=== PATIENT | male | born 1955 | race Caucasian/White ===

== ENCOUNTER 2018-02-03 09:11 | Observation (INO) ==
--- NOTE | 2018-02-03 09:29 | Emergency Department Note ---
Disposition Clinical Impression: ZARIA (acute kidney injury) Chest pain Qualifiers: Chest pain type: unspecified Qualified Code(s): R07.9 - Chest pain, unspecified CVA (cerebral vascular accident) Qualifiers: CVA mechanism: unspecified Qualified Code(s): I63.9 - Cerebral infarction, unspecified Disposition: Admitted As Inpatient Condition: Undetermined Referrals: Carroll Wilhelm DO [Primary Care Provider] - Forms: ED Satisfaction Letter Time of Disposition: 10:57 General Adult HPI - General Chief complaint: ED Chest Pain Stated complaint: chest pain, nausea Time Seen by Provider: 02/03/18 09:15 Source: patient Mode of arrival: ambulatory Limitations: no limitations Nursing Notes Reviewed: Yes Vital Signs Reviewed: Yes - History of Present Illness HPI Narrative: 62-year-old male with history of CABG 3 vessels, CVA, arrives to the emergency department with complaint of generalized malaise and nausea, diaphoresis, bilateral upper extremity numbness and paresthesias that are new. 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 The patient is unsure of exactly when this started. No one else in the room to perform last known well. The patient does have some right-sided facial By a less prominent nasolabial fold on the right side. The patient states that he is unsure as past but thinks it is. We Did not call a stroke alert because we are unsure of last known well. The patient admits to some retrosternal chest pain and mild shortness of breath as well. He is unsure if this feels like previous cardiac problems. The patient has seen cardiology, Dr. Garcia, who has seen a similar complaint. The denies any other complaints. - Related Data Allergies Allergy/AdvReac Type Severity Reaction Status Date / Time diphenhydramine AdvReac Rash Verified 02/03/18 09:23 [From Benadryl] "HEART CATH DYE" AdvReac See Uncoded 02/03/18 09:23 Comments All systems ED: reviewed and negative except as stated. Constitutional: Denies: fever, chills, weakness Eyes: Denies: eye pain ENT ED: Denies: congestion Cardiovascular: Reports: chest pain, dyspnea on exertion. Denies: edema, syncope Respiratory: Reports: dyspnea. Denies: cough, sputum production Gastrointestinal: Reports: nausea. Denies: abdominal pain, vomiting, diarrhea Genitourinary: Denies: urgency, dysuria Musculoskeletal: Denies: back pain, neck pain Integumentary: Denies: rash Neurological: Reports: weakness. Denies: headache Past Medical History - Past Medical History Attestation: Yes The following information was validated with the patient. Source: patient, old records reviewed Medical history: Reports: coronary artery disease, CVA, diabetes, hypertension Surgical history: Reports: appendectomy Psychiatric history: Reports: no psych history - Social History Smoking Status: Never smoker Smokeless Tobacco Status: No Alcohol use: Reports: none Drug use: Reports: none Physical Exam - General Limitations: no limitations General appearance: alert, in no apparent distress - Head Head exam: atraumatic, normocephalic, normal inspection - Eye Eye exam: Present: normal appearance, PERRL, EOMI - ENT ENT exam: normal exam, normal oropharynx, mucous membranes moist - Neck Neck exam: Present: normal inspection, full ROM, trachea midline - Chest Chest inspection: Present: normal inspection, symmetric chest wall rise - Respiratory Respiratory exam: Present: normal lung sounds bilaterally - Cardiovascular Cardiovascular exam: Present: regular rate, normal rhythm, normal heart sounds - Abdominal Exam Abdominal exam: Present: soft, Non-Tender. Absent: tenderness, distention, guarding, rebound, rigidity - Extremities Exam Extremities exam: Present: normal inspection, full ROM. Absent: tenderness, pedal edema - Neurological Exam Neurological exam: Present: alert, oriented X3, normal gait - Expanded Neurological Exam Patient oriented to: Present: person, place, time Speech: Present: fluid speech Cranial nerves: EOM function (II, III, IV, ): Normal, facial palsy (VII): Abnormal Right Cerebellar function: normal gait Motor strength - LUE: 4/5 Motor strength - RUE: 4/5 Motor strength - LLE: 4/5 Motor strength - RLE: 4/5 Sensory exam upper extremity: light touch: Normal Sensory exam lower extremity: light touch: Normal Coma Scale Eye Opening: Spontaneous Coma Scale Motor Response: Obeys Commands Coma Scale Verbal Response: Oriented Coma Scale Total: 15 - Skin Skin exam: Present: warm, dry, intact, normal color Course Vital Signs Temperature 97.0 F L 02/03/18 09:17 Pulse Rate 82 02/03/18 09:17 Respiratory Rate 16 02/03/18 09:17 Blood Pressure 113/83 02/03/18 09:17 O2 Sat by Pulse Oximetry 99 02/03/18 09:17 Temperature 97.0 F L 02/03/18 09:17 Pulse Rate 80 02/03/18 09:32 Respiratory Rate 16 02/03/18 09:32 Blood Pressure 126/75 02/03/18 09:32 O2 Sat by Pulse Oximetry 100 02/03/18 09:32 Oxygen Delivery Oxygen Delivery Room Air Medical Decision Making - MDM Narrative Medical decision making narrative: Patient's workup in the emergency department demonstrates concerning findings for possible CVA versus TIA. The patient does have right-sided nasolabial fold changes compared to the left and this is new according the patient's history. Last known well was unknown but the patient thinks it was roughly 1 day ago. A stroke alert was not called at that time due to unknown last known well. In addition the patient received a head CT for neurologic findings as well as lab work concerning for ACS. The patient's lab work demonstrates an acute kidney injury with no other abnormalities noted that are concerning to include a troponin within normal limits. The patient's EKG demonstrates no acute findings. The patient's head CT demonstrates no acute findings. The patient was administered 325 mg aspirin. He is chest pain-free at this time. Given the patient's workup in concerning findings on examination as well as history, we will admit the patient to the hospital at this time. Patient was made aware and agrees to plan. No further questions or concerns. The patient will be admitted to the hospitalist, accepted by Dr. Vela. Request Neuro consult which we will contact. - Medical Records Medical records reviewed: Yes I reviewed the patient's medical records. - Lab Data Lab results reviewed: Yes I reviewed the patient's lab results. Result diagrams: 02/03/18 09:26 02/03/18 09:26 Lab Results 02/03/18 02/03/18 02/03/18 Range/Units 09:16 09:26 09:26 WBC 7.6 (4.3-11.1) K/mcL RBC 3.74 L (4.19-5.50) M/mcL Hgb 11.6 L (12.9-16.9) g/dL Hct 34.7 L (37.5-50.1) % MCV 92.8 (83.0-100.0) fL MCH 31.0 (28.0-33.3) pg MCHC 33.4 (31.6-35.5) g/dL RDW 11.8 (11.5-14.5) % Plt Count 203 (140-400) K/mcL MPV 9.1 L (9.4-12.4) fL Immature Gran % 0.3 (0-4) % Seg Neutrophils % 74.5 % Lymphocytes % 16.2 % Monocytes % 7.5 % Eosinophils % 1.2 % Basophils % 0.3 % Neutrophils # 5.7 (1.6-8.9) K/mcL Lymphocytes # 1.2 (0.6-4.6) K/mcL Monocytes # 0.6 (0.0-1.3) K/mcL Eosinophils # 0.1 (0.0-0.6) K/mcL Basophils # 0.0 (0.0-0.2) K/mcL PT 10.7 (9.4-12.1) Seconds INR 1.0 APTT 28.9 (26.0-36.0) Seconds Sodium 137 (136-145) mEq/L Potassium 4.9 (3.5-5.1) mEq/L Chloride 108 H (98-107) mEq/L Carbon Dioxide 24 (23-29) mEq/L BUN 35 H (8-23) mg/dL Creatinine 1.39 H (0.70-1.30) mg/dL Est GFR ( Amer) > 60 (> 60) Est GFR (Non-Af Amer) 51 L (> 60) BUN/Creatinine Ratio 25 (6-26) Glucose 49 L (70-105) mg/dL Calculated Osmolality 289 (280-300) Calcium 10.0 (8.6-10.3) mg/dL Troponin I < 0.03 (< 0.04) ng/mL - Radiology Data Radiology results reviewed: Yes I reviewed the patient's radiology results. Chest X-Ray 02/03/18 09:16 IMPRESSION: 1. No active pulmonary disease. D/ / Nadir Nation MD / Nadir Nation MD Interpreting Provider: Nadir Nation MD Head CT 02/03/18 09:21 IMPRESSION: No acute intracranial abnormality. Senescent changes with diffuse parenchymal volume loss and sequela of chronic microvascular ischemic changes and old lacunar infarctions. D/ / Delvis Fierro MD / Delvis Fierro MD Interpreting Provider: Delvis Fierro MD Stroke Scale - Level of Consciousness LOC: Alert - LOC Questions LOC Questions: Answers both correctly - LOC Commands LOC Commands: Performs both correctly - Best Gaze Best Gaze: Normal - Visual Visual: No visual loss - Facial Palsy Facial Palsy: Minor asymmetry on smiling, flattened nasolabial fold - Motor Arms Motor Arm-Left: No drift for 10 seconds Motor Arm-Right: No drift for 10 seconds - Motor Legs Motor Leg-Left: No drift for 5 seconds Motor Leg-Right: No drift for 5 seconds - Limb Ataxia Limb Ataxia: Normal, No Ataxia - Sensory Sensory: Normal - Best Language Best Language: No aphasia - Dysarthria Dysarthria: Normal - Extinction and Inattention Extinction and Inattention: Normal - NIHSS Total Score NIHSS Total Score: 1
[2018-02-03 09:41] LABS: Basophils % 0.3 %; Eosinophils # 0.1 K/mcL (0.0-0.6); Eosinophils % 1.2 %; Hematocrit 34.7 % (37.5-50.1); Hemoglobin 11.6 g/dL (12.9-16.9); Immature Granulocytes % 0.3 % (0-4); Lymphocytes # 1.2 K/mcL (0.6-4.6); Lymphocytes % 16.2 %; Mean Corpuscular HGB Conc 33.4 g/dL (31.6-35.5); Mean Corpuscular Volume 92.8 fL (83.0-100.0); Mean Platelet Volume 9.1 fL (9.4-12.4); Monocytes # 0.6 K/mcL (0.0-1.3); Monocytes % 7.5 %; Neutrophils # 5.7 K/mcL (1.6-8.9); Platelet Count 203 K/mcL (140-400); Red Blood Count 3.74 M/mcL (4.19-5.50); Red Cell Distribution Width 11.8 % (11.5-14.5); Segmented Neutrophils % 74.5 %
[2018-02-03 09:55] LABS: Prothrombin Time 10.7 Seconds (9.4-12.1)
[2018-02-03 09:58] LABS: Activated Partial Thrombo Time 28.9 Seconds (26.0-36.0)
[2018-02-03 10:04] LABS: BUN/Creatinine Ratio 25 (6-26); Blood Urea Nitrogen 35 mg/dL (8-23); Carbon Dioxide 24 mEq/L (23-29); Chloride 108 mEq/L (98-107); Glucose 49 mg/dL (70-105); Osmolality,Calculated 289 (280-300); Potassium 4.9 mEq/L (3.5-5.1); Sodium 137 mEq/L (136-145); Troponin I < 0.03 ng/mL (< 0.04); eGFR For African Americans > 60 (> 60); eGFR For Non-African Americans 51 (> 60)
[2018-02-03] MEDS ORDERED: Aspirin 325 MG TABLET PO ONE (10:45)
--- NOTE | 2018-02-03 10:49 | Emergency Department Note ---
Disposition Clinical Impression: Chest pain Qualifiers: Chest pain type: unspecified Qualified Code(s): R07.9 - Chest pain, unspecified Disposition: Admitted As Inpatient Referrals: Carroll Wilhelm DO [Primary Care Provider] - Forms: ED Satisfaction Letter General Adult HPI - General Chief complaint: ED Chest Pain Stated complaint: chest pain, nausea Time Seen by Provider: 02/03/18 09:15 Source: patient Mode of arrival: ambulatory Limitations: no limitations - History of Present Illness Pain Scale: 7 - Related Data Allergies Allergy/AdvReac Type Severity Reaction Status Date / Time diphenhydramine AdvReac Rash Verified 02/03/18 09:23 [From Benadryl] "HEART CATH DYE" AdvReac See Uncoded 02/03/18 09:23 Comments Constitutional: Denies: fever, chills, weakness Eyes: Denies: eye pain ENT ED: Denies: congestion Cardiovascular: Reports: chest pain, dyspnea on exertion. Denies: edema, syncope Respiratory: Reports: dyspnea. Denies: cough, sputum production Gastrointestinal: Reports: nausea. Denies: abdominal pain, vomiting, diarrhea Genitourinary: Denies: urgency, dysuria Musculoskeletal: Denies: back pain, neck pain Integumentary: Denies: rash Neurological: Reports: weakness. Denies: headache Past Medical History - Past Medical History Medical history: Reports: coronary artery disease, CVA, diabetes, hypertension Surgical history: Reports: appendectomy Psychiatric history: Reports: no psych history - Social History Smoking Status: Never smoker Smokeless Tobacco Status: No Alcohol use: Reports: none Drug use: Reports: none Physical Exam - General Limitations: no limitations General appearance: alert, in no apparent distress Course Vital Signs Temperature 97.0 F L 02/03/18 09:17 Pulse Rate 82 02/03/18 09:17 Respiratory Rate 16 02/03/18 09:17 Blood Pressure 113/83 02/03/18 09:17 O2 Sat by Pulse Oximetry 99 02/03/18 09:17 Temperature 97.0 F L 02/03/18 09:17 Pulse Rate 80 02/03/18 09:32 Respiratory Rate 16 02/03/18 09:32 Blood Pressure 126/75 02/03/18 09:32 O2 Sat by Pulse Oximetry 100 02/03/18 09:32 Oxygen Delivery Oxygen Delivery Room Air Medical Decision Making - Lab Data Result diagrams: 02/03/18 09:26 02/03/18 09:26 Lab Results 02/03/18 02/03/18 02/03/18 Range/Units 09:16 09:26 09:26 WBC 7.6 (4.3-11.1) K/mcL RBC 3.74 L (4.19-5.50) M/mcL Hgb 11.6 L (12.9-16.9) g/dL Hct 34.7 L (37.5-50.1) % MCV 92.8 (83.0-100.0) fL MCH 31.0 (28.0-33.3) pg MCHC 33.4 (31.6-35.5) g/dL RDW 11.8 (11.5-14.5) % Plt Count 203 (140-400) K/mcL MPV 9.1 L (9.4-12.4) fL Immature Gran % 0.3 (0-4) % Seg Neutrophils % 74.5 % Lymphocytes % 16.2 % Monocytes % 7.5 % Eosinophils % 1.2 % Basophils % 0.3 % Neutrophils # 5.7 (1.6-8.9) K/mcL Lymphocytes # 1.2 (0.6-4.6) K/mcL Monocytes # 0.6 (0.0-1.3) K/mcL Eosinophils # 0.1 (0.0-0.6) K/mcL Basophils # 0.0 (0.0-0.2) K/mcL PT 10.7 (9.4-12.1) Seconds INR 1.0 APTT 28.9 (26.0-36.0) Seconds Sodium 137 (136-145) mEq/L Potassium 4.9 (3.5-5.1) mEq/L Chloride 108 H (98-107) mEq/L Carbon Dioxide 24 (23-29) mEq/L BUN 35 H (8-23) mg/dL Creatinine 1.39 H (0.70-1.30) mg/dL Est GFR ( Amer) > 60 (> 60) Est GFR (Non-Af Amer) 51 L (> 60) BUN/Creatinine Ratio 25 (6-26) Glucose 49 L (70-105) mg/dL Calculated Osmolality 289 (280-300) Calcium 10.0 (8.6-10.3) mg/dL Troponin I < 0.03 (< 0.04) ng/mL Attestation Statement - Attestation Attestation: I examined this patient and my medical decision-making was reviewed with the Resident Physician. I agree with the documented findings, disposition and treatment plan as described except to the extent set forth below. 62 year old male presnte ot the ed with complaints of chest pain and nausea and he has a history of CABG in 1998 and has a heart cath scheduled for with Dr. Garcia and states that he is having increased chest pressure and no longer has cardiac stents. PAtinet states that he has also noticed a new right sided facial droop although he does have a history of lacunar infarct and last known well is unknow although he think it may have been yesterday. Lab works show an ZARIA. We will admit to medicine.
[2018-02-03] MEDS ORDERED: Naloxone 0.4 MG/ML INJ IVP PRN (11:08)
[2018-02-03] MEDS ORDERED: *HR* LORazepam 2 MG/ML VIAL IVP ONE (11:50)
--- NOTE | 2018-02-03 11:56 | Internal Med History&Physical ---
Date of Encounter: 02/03/18 Time of Encounter: 11:50 Internal Medicine - H&P: HPI Chief complaint: Feeling unwell, chest pain, slurred speech History of present illness: Mr. Templeton is a 62 year old male with pmh of hypertension, dyslipidemia presenting with complaints of feeling unwell for the last 24hrs with subjective facial droop and chest pain. Patient says he woke up feeling sluggish yesterday and began to feel unwell as the day progressed particularly when he was taking out the trash. He noticed he had some sweating, didnt feel too good with possible slurring of his speech. He is scheduled for a cardiac cath on and came to the hospital to get some pre rn cardiac cath and EKG done and said he began to experience chest pain with left arm numbness and tingling, so , he decided to come to the ER and get cecked out. Chest pain was described as pressure like, 5/[address] was negative in the ER, troponins were also negative Past Med Surg Social Fam HX - Past Medical History Medical history: coronary artery disease, CVA, diabetes, hypertension Psychiatric history: no psych history - Past Surgical History Surgical History: appendectomy Additional surgical history: heart stent,heart bypass - Social History Smoking Status: Never smoker Smokeless Tobacco Status: No Alcohol use: none Drug use: none Internal Medicine - H&P: Meds Aspirin [Lo-Dose Aspirin EC] 81 mg PO DAILY 02/03/18 [History] Atorvastatin Calcium [Lipitor] 20 mg PO DAILY 02/03/18 [History] Gabapentin [Neurontin] 300 mg PO QID 02/03/18 [History] Glimepiride [Amaryl] 4 mg PO BID 02/03/18 [History] Lisinopril [Zestril] 10 mg PO DAILY 02/03/18 [History] Metformin HCl [Metformin HCl] 1,000 mg PO BID 02/03/18 [History] 3 Allergy/AdvReac Type Severity Reaction Status Date / Time diphenhydramine AdvReac Rash Verified 02/03/18 11:09 [From Benadryl] "HEART CATH DYE" AdvReac See Uncoded 02/03/18 11:09 Comments All Systems PM: A 10-system review of systems was performed and is negative for pertinent findings except as documented above in the HPI. - Constitutional Constitutional: no chills, no fever(s), no night sweats - EENT Eyes: no change in vision, no discharge, no pain, no photophobia Ears: no ear discharge, no ear pain, no tinnitus Nose, mouth and throat: no dysphagia, no nasal discharge, no neck pain, no sore throat - Cardiovascular Cardiovascular ROS IM: chest pain, no diaphoresis, no dyspnea, no lightheadedness, no palpitations, no syncope - Respiratory Respiratory: no cough, no dyspnea, no wheezing, no excessive phlegm production - Gastrointestinal Gastrointestinal: no abdominal pain, no diarrhea, no hematemesis, no hematochezia, no melena, no nausea, no vomiting - Musculoskeletal Musculoskeletal ROS IM: no numbness, no tingling - Integumentary Integumentary IM: no rash, no unusual bruising - Neurological Neurological ROS: headache(s), no confusion, no convulsions, no focal weakness, no numbness, no tingling, no tremor(s) - Hematologic/Lymphatic Hematologic/Lymphatic: no easy bruising - Constitutional Vitals: Temp Pulse Resp BP Pulse Ox 97.0 F L 80 16 111/71 93 02/03/18 09:17 02/03/18 11:04 02/03/18 11:04 02/03/18 11:04 02/03/18 11:04 - Head Head exam: Present: atraumatic, normocephalic - Eye Eye exam: Present: PERRL, conjuntiva pink, sclera anicteric Pupils: Present: PERRL - Neck Neck exam general surgery: Present: supple, trachea midline. Absent: lymphadenopathy - Respiratory Respiratory exam: Present: CTAB. Absent: accessory muscle use, rales, rhonchi, wheezes - Cardiovascular Cardiovascular exam: Present: RRR, +S1, +S2. Absent: diastolic murmur, gallop, rubs, systolic murmur - GI/Abdominal GI/Abdominal exam: Present: normal bowel sounds, soft, no peritoneal signs. Absent: distended, tenderness - Extremities Exam Extremities exam: Present: warm, radial pulses palpable and symmetrical. Absent : calf tenderness, cyanotic, pedal edema - Neurological Exam Neurological exam: Present: CN II-XII intact, oriented X3, no focal deficits. Absent: pronater drift, facial droop, speech deficit - Skin Skin exam: Present: dry, intact Internal Med - H&P Results - Labs CBC & Chem 7: 02/03/18 09:26 02/03/18 09:26 - Assessment and plan (1) CVA (cerebral vascular accident) Current Visit: Yes Status: Ruled-out Assessment and plan: r/o Acute CVA. Patient complained of some subjective slurring of his speech. CT head was negative. Obtain MRI brain. Neuro consult. Start on aspirin and lipitor. Obtain 2d echo Qualifiers: CVA mechanism: unspecified Qualified Code(s): I63.9 - Cerebral infarction, unspecified (2) Chest pain Current Visit: Yes Status: Acute Assessment and plan: Chest pain r/o DE. Scheduled for cath on . Stress test in november showed depressed EF but no ischemic changes. Spoke with cardiology, if MRI is negative for CVA, will likely proceed with cath Qualifiers: Chest pain type: unspecified Qualified Code(s): R07.9 - Chest pain, unspecified (3) Hypertension Current Visit: Yes Status: Acute Assessment and plan: Continue lisnopril Qualifiers: Qualified Code(s): I10 - Essential (primary) hypertension (4) Dyslipidemia Current Visit: Yes Status: Acute Assessment and plan: Continue atorvastatin (5) DVT prophylaxis Current Visit: Yes Status: Acute Assessment and plan: Continue heparin - Time Spent With Patient Total time spent is greater than 50% in coordination of care (as documented) at patient's floor/unit and/or counseling patient:
[2018-02-03] MEDS ORDERED: *HR* LORazepam 2 MG/ML VIAL ONE (12:02)
[2018-02-03] MEDS ORDERED: Dextrose Gel 15 GM/37.5 ML TUBE PO PRN ×2 (13:06)
[2018-02-03] MEDS ORDERED: D5% in Water 1,000 ML IVC PRN (13:06)
[2018-02-03] MEDS ORDERED: *HR* Dextrose 50 % in Water (Syg) 50 ML SYRINGE IVP PRN (13:06)
[2018-02-03] MEDS ORDERED: *HR* Dextrose 50 % in Water (Syg) 50 ML SYRINGE ONE (13:13)
[2018-02-03] MEDS: Gabapentin 300 MG CAPSULE PO SCH ×3 (13:14→21:46)
[2018-02-03] MEDS: 0.9 % Sodium Chloride 1,000 ML IVC SCH ×2 (13:14→21:54)
[2018-02-03] MEDS: Insulin LISPRO 300 UNITS/3 ML VIAL SQ SCH ×3 (13:56→21:47)
--- NOTE | 2018-02-03 14:20 | Neurology - Consult Note ---
<Idris Lopez R - Last Filed: 02/03/18 14:44> Date of Encounter: 02/03/18 Time of Encounter: 14:11 Assessment and Plan (1) CVA (cerebral vascular accident) Current Visit: Yes Status: Ruled-out Physical exam findings are not suggestive of new CVA, some residual weakness is present from past CVA. CT and MRI findings are not suggestive of acute event. Qualifiers: CVA mechanism: unspecified Qualified Code(s): I63.9 - Cerebral infarction, unspecified History of Present Illness HPI: Mr. Templeton is a 62 year old male with a history of diabetes, hypertension, dyslipedemia, and CVA in 2016. Presented to ED this morning for chest pain, generalized weakness, diaphoresis and facial droop. He is unsure if facial droop is worse than baseline. Malaise began yesterday evening and progressed throughout the night. On exam today, patient states he doesn't feel improved and still doesn't feel right. He is able to ambulate in his room, however he feels weak. Past stroke has left him with difficulty in word finding and concentration as well as right upper extremity weakness. Past Med Surg Social Fam HX - Past Medical History Medical history: coronary artery disease, CVA, diabetes, hypertension Psychiatric history: no psych history - Past Surgical History Surgical History: appendectomy Additional surgical history: heart stent,heart bypass - Social History Smoking Status: Never smoker Smokeless Tobacco Status: No Alcohol use: none Drug use: none - Family History Mother History Unknown: Yes Living Status: Still Living Father Living Status: Hx Family Cardiac Disorders: Yes ([place]) Hx Family Cancer: Yes (colon) Medications and Allergies Aspirin [Lo-Dose Aspirin EC] 81 mg PO DAILY 02/03/18 [History] Atorvastatin Calcium [Lipitor] 20 mg PO DAILY 02/03/18 [History] Gabapentin [Neurontin] 300 mg PO QID 02/03/18 [History] Glimepiride [Amaryl] 4 mg PO BID 02/03/18 [History] Lisinopril [Zestril] 10 mg PO DAILY 02/03/18 [History] Metformin HCl [Metformin HCl] 1,000 mg PO BID 02/03/18 [History] 3 Allergy/AdvReac Type Severity Reaction Status Date / Time diphenhydramine AdvReac Rash Verified 02/03/18 11:09 [From Benadryl] "HEART CATH DYE" AdvReac See Uncoded 02/03/18 11:09 Comments All Systems: The remainder of the systems were reviewed and are negative Review of Systems: Patient endorses feeling generalized weakness and malaise, and chest pain which is better at the moment. Physical Examination - Vital Signs Vital Signs: Initial Vital Signs Temp Pulse Resp BP Pulse Ox 97.0 F L 82 16 113/83 99 02/03/18 09:17 02/03/18 09:17 02/03/18 09:17 02/03/18 09:17 02/03/18 09:17 - Exam Exam: Mental Status: Awake, alert and oriented to person, place, and time. Speech is slowed with occasional pauses for word finding, per patient this is normal for him. Cranial Nerves: CN II-XII intact bilateral, pupils are equal, round, and reactive to light. Mild right side facial droop is present. Upper extremity motor exam: 4/5 strength in right upper extremity, 5/5 in left deltoid, biceps, triceps, finger extensors and abductors. Lower extremity motor exam: 5/5 strenght in bilateral hip flexors, quadriceps, hamstrings, plantar flexors and extensors. Sensory: Sensation to pain and light touch is intact in upper extremities and proximal lower extremities. Sensation is decreased in bilateral feet, per patient this is at baseline for him. Cerebellum: finger-nose and rapid alternating movements do not reveal any dysmetria or ataxia. Reflexes: 1+ reflexes symmetric in bilateral biceps, triceps, brachioradialis, achilles, and patellar reflexes Results - Laboratory Findings CBC and BMP: 02/03/18 09:26 02/03/18 09:26 Abnormal lab findings: Abnormal lab results RBC 3.74 M/mcL (4.19-5.50) L 02/03/18 09:26 Hgb 11.6 g/dL (12.9-16.9) L 02/03/18 09:26 Hct 34.7 % (37.5-50.1) L 02/03/18 09:26 MPV 9.1 fL (9.4-12.4) L 02/03/18 09:26 Chloride 108 mEq/L (98-107) H 02/03/18 09:26 BUN 35 mg/dL (8-23) H 02/03/18 09:26 Creatinine 1.39 mg/dL (0.70-1.30) H 02/03/18 09:26 Est GFR (Non-Af Amer) 51 (> 60) L 02/03/18 09:26 Glucose 49 mg/dL (70-105) L 02/03/18 09:26 Consult Discharge Plan - Plan Referrals: Carroll Wilhelm DO [Primary Care Provider] - <Shreya Persaud I - Last Filed: 02/03/18 16:14> Date of Encounter: 02/03/18 Assessment and Plan (1) Weakness Current Visit: Yes Status: Acute Pt was seen and examined, my medical decision was reviewed with the Resident Physician, I agree with the documented findings, disposition and treatment plas as described except to the extent set forth below Patient with a history of hemorrhagic stroke in the past been admitted with these nonspecific symptoms no new focal lateralizing sign on examination to be suggestive of acute stroke she he already had MRI of the brain that did not show any acute infarct it did shows evidence of previous infarct in the left hemisphere with some hemorrhagic component in the past but no evidence of any acute bleed. At the moment the symptoms are quite nonspecific suggest to check for other underlying infectious and metabolic abnormalities that may be causing or contributing to her symptoms. Patient is on an aspirin on a regular basis suggested to continue. Can check carotid and echocardiogram to make sure no underlying abnormality. Other workup is as per primary team Shreya Persaud MD History of Present Illness HPI: Mr. Templeton is a 62 year old male All Systems: The remainder of the systems were reviewed and are negative Physical Examination - Vital Signs Vital Signs: Initial Vital Signs Temp Pulse Resp BP Pulse Ox 97.0 F L 82 16 113/83 99 02/03/18 09:17 02/03/18 09:17 02/03/18 09:17 02/03/18 09:17 02/03/18 09:17 Results - Laboratory Findings CBC and BMP: 02/03/18 09:26 02/03/18 09:26 Abnormal lab findings: Abnormal lab results RBC 3.74 M/mcL (4.19-5.50) L 02/03/18 09:26 Hgb 11.6 g/dL (12.9-16.9) L 02/03/18 09:26 Hct 34.7 % (37.5-50.1) L 02/03/18 09:26 MPV 9.1 fL (9.4-12.4) L 02/03/18 09:26 Chloride 108 mEq/L (98-107) H 02/03/18 09:26 BUN 35 mg/dL (8-23) H 02/03/18 09:26 Creatinine 1.39 mg/dL (0.70-1.30) H 02/03/18 09:26 Est GFR (Non-Af Amer) 51 (> 60) L 02/03/18 09:26 Glucose 49 mg/dL (70-105) L 02/03/18 09:26
[2018-02-03] MEDS: *HR* Heparin 5,000 UNIT/ML VIAL SQ SCH (17:28)
[2018-02-03 17:52] LABS: Estimated Average Glucose 140 mg/dl; Hemoglobin A1C 6.5 %
[2018-02-04 04:50] LABS: Basophils % 0.3 %; Eosinophils # 0.2 K/mcL (0.0-0.6); Eosinophils % 2.8 %; Hematocrit 32.9 % (37.5-50.1); Hemoglobin 10.6 g/dL (12.9-16.9); Immature Granulocytes % 0.2 % (0-4); Lymphocytes # 1.7 K/mcL (0.6-4.6); Lymphocytes % 29.7 %; Mean Corpuscular HGB Conc 32.2 g/dL (31.6-35.5); Mean Corpuscular Hemoglobin 29.9 pg (28.0-33.3); Mean Corpuscular Volume 92.7 fL (83.0-100.0); Mean Platelet Volume 9.8 fL (9.4-12.4); Monocytes # 0.5 K/mcL (0.0-1.3); Monocytes % 8.3 %; Neutrophils # 3.4 K/mcL (1.6-8.9); Platelet Count 186 K/mcL (140-400); Red Blood Count 3.55 M/mcL (4.19-5.50); Red Cell Distribution Width 11.9 % (11.5-14.5); Segmented Neutrophils % 58.7 %
[2018-02-04 05:13] LABS: BUN/Creatinine Ratio 23 (6-26); Blood Urea Nitrogen 28 mg/dL (8-23); Calcium 9.3 mg/dL (8.6-10.3); Carbon Dioxide 25 mEq/L (23-29); Chloride 111 mEq/L (98-107); Cholesterol 116 mg/dL (< 200); Glucose 139 mg/dL (70-105); HDL Cholesterol 39 mg/dL (40-59); LDL Cholesterol,Calculated 57 mg/dL (0-99); Magnesium 1.4 mg/dL (1.6-2.6); Osmolality,Calculated 300 (280-300); Phosphorous 3.7 mg/dL (2.7-4.5); Potassium 5.1 mEq/L (3.5-5.1); Sodium 141 mEq/L (136-145); Triglycerides 99 mg/dL (< 150); eGFR For African Americans > 60 (> 60); eGFR For Non-African Americans 59 (> 60)
[2018-02-04] MEDS: *HR* Heparin 5,000 UNIT/ML VIAL SQ SCH ×2 (06:23→20:10)
[2018-02-04] MEDS: Insulin LISPRO 300 UNITS/3 ML VIAL SQ SCH ×4 (09:03→20:11)
[2018-02-04] MEDS: Gabapentin 300 MG CAPSULE PO SCH ×4 (11:09→20:13)
[2018-02-04] MEDS: Aspirin Enteric Coated 81 MG Tablet PO SCH (11:09)
[2018-02-04] MEDS ORDERED: predniSONE 20 MG TABLET PO ONE (11:37)
--- NOTE | 2018-02-04 12:12 | Cardiology Consult Note ---
<Torin Andersen R - Last Filed: 02/04/18 11:50> Date of Encounter: 02/04/18 Time of Encounter: 11:50 Assessment and Plan (1) Abnormal stress test Current Visit: Yes Status: Acute Stress test 12/19/2017 mild-moderate intensity stress perfusion defect involving the basal to distal inferior wall representing ischemia. Gated EF = 46%. Possible borderline qualitative TID. Plan was for outpt [facility] . Presented yesterday with symptoms of unstable angina and similar to prior anginal equivalent. Recommend [facility]. R/B/A discussed. Agrees to proceed with [facility] today. Listed allergies to benadryl and IVP dye. Reports with a prior cath the IVP dye and benadryl were given at the same time and made him "speed up". Denies that he had difficulty breathing or throat swelling. Plan as outpt was for one dose of PO Prednisone 60mg. Discussed with Dr. Tiffany Ty, give PO Prednisone now. (2) CAD (coronary artery disease) Current Visit: Yes Status: Acute Known hx of CAD and s/p PCI and CABG x 3 in 1998. ASA, Statin, ACEi, BB. Qualifiers: Coronary Disease-Associated Artery/Lesion type: [place] artery [place] vs. transplanted heart: [place] heart Associated angina: with unstable angina Qualified Code(s): I25.110 - Atherosclerotic heart disease of [place] coronary artery with unstable angina pectoris (3) Unstable angina Current Visit: Yes Status: Acute As above, chest pain initially started with exertion Saturday, remained constant until this morning. Similar to prior anginal equivalent. [facility] today for abnormal stress test and unstable angina. (4) Cardiomyopathy Current Visit: Yes Status: Acute Mildly reduced LVEF 45-50%. Normal LV chamber size and wall thickness. Mild global left ventricular systolic dysfunction. Mild left ventricular diastolic dysfunction. Euvolemic on exam. Continue BB and ACEi. Qualifiers: Cardiomyopathy type: unspecified Qualified Code(s): I42.9 - Cardiomyopathy , unspecified Discussion w patient/family: The assessment and plan as outlined above was discussed with the patient and/or family members who expressed understanding and agreement. All questions were answered. Thank you for involving us in the care of your patient. Please call with any questions. I will discuss all the above with Dr. Melo and make changes as necessary. History of Present Illness Consult date: 02/04/18 Consult reason: Unstable angina, abnormal stress Chief complaint: Chest pain History of present illness: Mr. Templeton is a 62 year old male with PMH of DM, HTN, CAD s/p PCI and CABG x 3 in 1998, CVA in 2015 that presented to ED for chief complaint of chest pain. He had a recent abnormal stress test 12/19/2017. There was mild-moderate intensity stress perfusion defect involving the basal to distal inferior wall representing ischemia. Gated EF = 46%. Possible borderline qualitative TID. Plan was for outpt [facility] . Pt states he was walking Saturday and developed chest heaviness with radiation to his left arm associated with diaphoresis-- similar to prior anginal equivalent, worse on exertion. He states in the ED he made staff aware that he has slow speech from CVA in 2015. He states there was some confusion and they thought he was having acute slurred speech. Head CT and brain MRI completed--negative for acute process. EKG SR. Troponin negative. Pt reports the chest pain was constant until this morning. Currently chest pain free. TTE completed 02/03/18--LVEF 45-50%. Normal LV chamber size and wall thickness. Mild global left ventricular systolic dysfunction. Mild left ventricular diastolic dysfunction. Atypical septal motion consistent with post-operative status. Normal right ventricular structure and function. No evidence of pulmonary hypertension. No significant valvular dysfunction. Past Med Surg Social Fam HX - Past Medical History Medical history: coronary artery disease, CVA, diabetes, hypertension Psychiatric history: no psych history - Past Surgical History Surgical History: appendectomy, coronary bypass (CABG) Additional surgical history: heart stent,heart bypass - Social History Smoking Status: Never smoker Smokeless Tobacco Status: No Alcohol use: none Drug use: none - Family History Mother History Unknown: Yes Living Status: Still Living Father Living Status: Hx Family Cardiac Disorders: Yes ([place]) Hx Family Cancer: Yes (colon) Medications and Allergies Aspirin [Lo-Dose Aspirin EC] 81 mg PO DAILY 02/03/18 [History] Atorvastatin Calcium [Lipitor] 20 mg PO DAILY 02/03/18 [History] Gabapentin [Neurontin] 600 mg PO BID 02/03/18 [History] Glimepiride [Amaryl] 4 mg PO BID 02/03/18 [History] Lisinopril [Zestril] 10 mg PO DAILY 02/03/18 [History] Metformin HCl [Metformin HCl] 1,000 mg PO BID 02/03/18 [History] 3 Allergy/AdvReac Type Severity Reaction Status Date / Time diphenhydramine AdvReac Rash Verified 02/03/18 18:51 [From Benadryl] "HEART CATH DYE" AdvReac See Uncoded 02/03/18 18:51 Comments All Systems Review: The remainder of the systems were reviewed and are negative - Cardiovascular Cardiovascular: as per HPI, chest pain at rest, chest pain with exertion, diaphoresis, radiating jaw, neck or arm pain Physical Examination Vital Signs Temp Pulse Resp BP Pulse Ox 02/04/18 11:48 97.4 F L 85 14 138/83 99 02/04/18 07:30 98.1 F 78 14 149/87 99 02/04/18 03:29 98.1 F 75 12 153/75 02/03/18 23:22 98.1 F 65 16 158/82 98 02/03/18 18:56 97.7 F 60 16 161/85 97 02/03/18 13:03 97.8 F 74 14 145/73 99 Intake and Output 02/03/18 02/04/18 02/04/18 23:59 07:59 15:59 Intake Total 1000 / 1000 240 / 240 Output Total 300 / 300 300 / 300 Balance 1000 / 1000 -300 / -300 -60 / -60 Intake: IV Fluids 1000 / 1000 0.9 % Sodium Chloride 1,000 ML 1000 / 1000 @ 100 mls/hr IVC .Q10H [facility] Rx#: [id number] Oral 240 / 240 Output: Urine 300 / 300 300 / 300 Other: Meal Breakfast Percent of Meal Consumed 100% Blood Glucose* 74 113 106 General: Conversant, No Apparent Distress HEENT: Atraumatic, Normocephaly, Mucus Membranes Moist Neck: No JVD, Normal carotid pulses Cardiac: Reg Rate and Rhythm, Normal S1 and S2, No Murmur Lungs: Normal Breath Sounds, No Wheeze, Rales, Rhonchi Neuro: Alert and responsive, No focal deficits noted Abdomen: Soft, Non-Tender Skin: No rashes noted on visualized skin Musculoskeletal: No Chest Wall Tenderness Extremities: No Clubbing, No Cyanosis, No Edema, Normal Pulses Results 02/04/18 03:48 02/04/18 03:48 Lab Results 02/03/18 02/03/18 02/04/18 15:33 21:09 03:48 WBC Hgb Hct Plt Count Sodium Potassium Chloride Carbon Dioxide BUN Creatinine Glucose Calcium Magnesium Troponin I < 0.03 < 0.03 < 0.03 02/04/18 02/04/18 03:48 03:48 WBC 5.8 Hgb 10.6 L Hct 32.9 L Plt Count 186 Sodium 141 Potassium 5.1 Chloride 111 H Carbon Dioxide 25 BUN 28 H Creatinine 1.23 Glucose 139 H Calcium 9.3 Magnesium 1.4 L Troponin I Short CBC 02/04/18 Range/Units 03:48 WBC 5.8 (4.3-11.1) K/mcL Hgb 10.6 L (12.9-16.9) g/dL Hct 32.9 L (37.5-50.1) % Plt Count 186 (140-400) K/mcL Neutrophils # 3.4 (1.6-8.9) K/mcL BMP 02/04/18 Range/Units 03:48 Sodium 141 (136-145) mEq/L Potassium 5.1 (3.5-5.1) mEq/L Chloride 111 H (98-107) mEq/L Carbon Dioxide 25 (23-29) mEq/L BUN 28 H (8-23) mg/dL Creatinine 1.23 (0.70-1.30) mg/dL Glucose 139 H (70-105) mg/dL Calcium 9.3 (8.6-10.3) mg/dL Cardiac Enzymes 02/04/18 02/03/18 02/03/18 Range/Units 03:48 21:09 15:33 Troponin I < 0.03 < 0.03 < 0.03 (< 0.04) ng/mL Impressions Brain MRI 02/03/18 11:06 IMPRESSION: 1. No acute intracranial abnormality. Specifically, no acute infarction. 2. Parenchymal volume loss and sequela of chronic microvascular ischemic changes. D/ / 02/03/2018 12:52:44 Delvis Fierro MD / [email or web address] Interpreting Provider: Delvis Fierro MD Echocardiogram 02/03/18 11:08 Impressions: LVEF 45-50%. Normal LV chamber size and wall thickness. Mild global left ventricular systolic dysfunction. Mild left ventricular diastolic dysfunction. Atypical septal motion consistent with post-operative status. Normal right ventricular structure and function. No evidence of pulmonary hypertension. No significant valvular dysfunction. Left Ventricular Wall Motion: Rest Echo Findings The apex, apical inferior, mid inferior, basal inferior, apical anterior, mid anterior, basal anterior, apical septal, mid inferior septal, basal inferior septal, apical lateral, mid anterior lateral, basal anterior lateral, mid anterior septal, mid inferior lateral, basal anterior septal and basal inferior lateral caldera were hypokinetic. Findings: Study Quality * Technically adequate exam. ECG Findings * Normal sinus rhythm. Left Ventricle * LVEF 45-50%. * Normal LV chamber size and wall thickness. * Mild global left ventricular systolic dysfunction. * Mild left ventricular diastolic dysfunction. * Atypical septal motion consistent with post-operative status. Right Ventricle * Normal right ventricular structure and function. Left Atrium * Moderately dilated left atrium. Right Atrium * Normal right atrial size. Interatrial Septum * No evidence of a PFO with agitated saline contrast. Aortic Valve * Trileaflet aortic valve with normal function. * No aortic regurgitation. * No aortic stenosis. Mitral Valve * Normal mitral valve structure and function. * Trace mitral regurgitation. * No mitral stenosis. Tricuspid Valve * Normal tricuspid valve structure and function. * Trace tricuspid regurgitation. * No evidence of pulmonary hypertension. Pulmonic Valve * Normal pulmonic valve structure and function. * No pulmonic regurgitation. Aorta * Normally sized aortic root. Pericardium * The pericardium appears normal. IVC * Normal IVC dimensions and inspiratory collapse. Pulmonary Artery * Normal visualized portions of the main pulmonary artery. Active Medications Aspirin (Aspirin Ec) 81 mg PO DAILY [place] Stop: 08/06/18 09:01 Last Admin: 02/04/18 11:09 Dose: 81 mg Atorvastatin Calcium (Lipitor) 80 mg PO HS [facility] Stop: 08/06/18 21:01 Dextrose/Water (Dextrose 50% (Syg)) 25 ml IVP AD PRN PRN Reason: Hypoglycemia Stop: 08/05/18 13:07 Gabapentin (Neurontin) 300 mg PO QID [place] Stop: 08/05/18 13:01 Last Admin: 02/04/18 11:09 Dose: 300 mg Glucagon (Glucagen) 1 mg IM ONCE PRN PRN Reason: Hypoglycemia Stop: 08/05/18 13:07 Glucose (Gluctose) 15 gm PO ONCE PRN PRN Reason: Hypoglycemia Stop: 08/05/18 13:07 Glucose (Gluctose) 30 gm PO ONCE PRN PRN Reason: Hypoglycemia Stop: 08/05/18 13:07 Heparin Sodium (Porcine) (Heparin) 5,000 unit SQ Q12HCO [facility] Stop: 08/05/18 18:01 Last Admin: 02/04/18 06:23 Dose: 5,000 unit Dextrose (Dextrose 5%) 1,000 mls @ 100 mls/hr IVC .Q10H PRN PRN Reason: HYPOGLYCEMIA Stop: 08/05/18 13:07 Insulin Human Lispro (Humalog) 0 units SQ TIDAC [facility] PRN Reason: Protocol Stop: 08/05/18 13:16 Last Admin: 02/04/18 11:44 Dose: Not Given Insulin Human Lispro (Humalog) 0 units SQ HS [facility] PRN Reason: Protocol Stop: 08/05/18 21:01 Last Admin: 02/03/18 21:47 Dose: Not Given Lisinopril (Zestril) 10 mg PO DAILY [facility] PRN Reason: Protocol Stop: 08/06/18 09:01 Last Admin: 02/04/18 11:09 Dose: 10 mg Naloxone HCl (Narcan) 0.4 mg IVP Q2MIN PRN PRN Reason: SEE COMMENTS Stop: 08/05/18 11:09 - Imaging and Cardiology Stress Test: report reviewed Echo: report reviewed - EKG Interpretation EKG results cardiology: personally reviewed (SR) Consult Discharge Plan - Plan Referrals: Carroll Wilhelm DO [Primary Care Provider] - <Rehan Melo - Last Filed: 02/04/18 14:21> Date of Encounter: 02/04/18 - Attending Attestation I have personally performed a face to face evaluation on this patient. I have reviewed and agree with the care plan. History and Exam by me shows: 62-year-old male with abnormal stress test presented with breakthrough chest pain to the emergency department. Patient to have left heart catheterization today. IVP dye Allergies discussed with Dr. Tiffany Ty and is okay to proceed Assessment and Plan Discussion w patient/family: The assessment and plan as outlined above was discussed with the patient and/or family members who expressed understanding and agreement. All questions were answered. Thank you for involving us in the care of your patient. Please call with any questions. History of Present Illness History of present illness: Mr. Templeton is a 62 year old male All Systems Review: The remainder of the systems were reviewed and are negative Physical Examination Vital Signs, Last 4 Hours Temp Pulse Resp BP Pulse Ox 02/04/18 11:48 97.4 F L 85 14 138/83 99 Results 02/04/18 03:48 02/04/18 03:48 Lab Results 02/03/18 02/03/18 02/04/18 15:33 21:09 03:48 WBC Hgb Hct Plt Count Sodium Potassium Chloride Carbon Dioxide BUN Creatinine Glucose Calcium Magnesium Troponin I < 0.03 < 0.03 < 0.03 02/04/18 02/04/18 03:48 03:48 WBC 5.8 Hgb 10.6 L Hct 32.9 L Plt Count 186 Sodium 141 Potassium 5.1 Chloride 111 H Carbon Dioxide 25 BUN 28 H Creatinine 1.23 Glucose 139 H Calcium 9.3 Magnesium 1.4 L Troponin I
--- NOTE | 2018-02-04 14:53 | Internal Med Progress Note ---
Date of Encounter: 02/04/18 Time of Encounter: 14:51 - Assessment and plan (1) Chest pain Current Visit: Yes Status: Acute Assessment and plan: Chest pain r/o [place]. Scheduled for cath on . Stress test in november showed depressed EF but no ischemic changes. Spoke with cardiology, if MRI is negative for CVA, will likely proceed with cath 02/04/2018-await cardiac catheterization today. We will continue to monitor on telemetry and follow plan and recommendation from cardiology Qualifiers: Chest pain type: unspecified Qualified Code(s): R07.9 - Chest pain, unspecified (2) CVA (cerebral vascular accident) Current Visit: Yes Status: Ruled-out Assessment and plan: r/o Acute CVA. Patient complained of some subjective slurring of his speech. CT head was negative. Obtain MRI brain. Neuro consult. Start on aspirin and lipitor. Obtain 2d echo 02/04-MRI is negative for any new stroke. Symptoms are most likely from the old CVA which she had in 2016. Qualifiers: CVA mechanism: unspecified Qualified Code(s): I63.9 - Cerebral infarction, unspecified (3) Hypertension Current Visit: Yes Status: Acute Assessment and plan: Continue lisnopril Qualifiers: Qualified Code(s): I10 - Essential (primary) hypertension (4) Dyslipidemia Current Visit: Yes Status: Acute Assessment and plan: Continue atorvastatin (5) DVT prophylaxis Current Visit: Yes Status: Acute Assessment and plan: Continue heparin - Time Spent With Patient Total time spent is greater than 50% in coordination of care (as documented) at patient's floor/unit and/or counseling patient: 25 - 35 minutes - Subjective Interval history: Patient denies any new neurological symptoms. Does not complain of any chest pain at this time. - Constitutional Vitals: Temp Pulse Resp BP Pulse Ox 97.4 F L 85 14 138/83 99 02/04/18 11:48 02/04/18 11:48 02/04/18 11:48 02/04/18 11:48 02/04/18 11:48 Exam: GENERAL: Alert, no distress, cooperative EYES: PERRLA, EOMI EARS: External ears normal, canals clear OROPHARYNX: Lips, mucosa, and tongue normal. Teeth and gums normal. Oropharynx normal. NECK: No jugulovenous distention, No carotid bruits, Carotid pulse normal contour, Supple LUNGS: Lungs clear to auscultation, Good diaphragmatic excursion CARDIAC: Normal S1 and S2; no rubs, murmurs, or gallops ABDOMEN: Abdomen soft, non-tender, BS normal, No masses or organomegaly EXTREMITIES: Extremities normal, no deformities, edema, clubbing or skin discoloration. Good capillary refill., No ulcers NEURO: Residual right-sided weakness from his prior stroke. Strength is 4 x 5 in the upper extremity on the right side PULSES: 2+ radial, 2+ carotid Rest of the exam is non contributory Internal Medicine: Result - Labs CBC & Chem 7: 02/04/18 03:48 02/04/18 03:48 Labs: Short CBC 02/04/18 Range/Units 03:48 WBC 5.8 (4.3-11.1) K/mcL Hgb 10.6 L (12.9-16.9) g/dL Hct 32.9 L (37.5-50.1) % Plt Count 186 (140-400) K/mcL Neutrophils # 3.4 (1.6-8.9) K/mcL BMP 02/04/18 03:48 Sodium 141 Potassium 5.1 Chloride 111 H Carbon Dioxide 25 BUN 28 H Creatinine 1.23 Glucose 139 H Calcium 9.3 Cardiac Enzymes 02/03/18 02/03/18 02/04/18 Range/Units 15:33 21:09 03:48 Troponin I < 0.03 < 0.03 < 0.03 (< 0.04) ng/mL - ABG Interpretation ABG results: PT/INR, D-dimer PT 10.7 Seconds (9.4-12.1) 02/03/18 09:16 Consult Discharge Plan - Plan Referrals: Carroll Wilhelm DO [Primary Care Provider] -
[2018-02-04] MEDS ORDERED: *HR* Heparin 10,000 UNIT/10 ML VIAL ONE (15:33)
[2018-02-04] MEDS ORDERED: 0.9 % Sodium Chloride 1,000 ML ONE ×3 (15:33→16:49)
[2018-02-04] MEDS ORDERED: Heparin 1,000 UNITS/500 mL 500 ML ONE ×2 (15:33→17:28)
[2018-02-04] MEDS ORDERED: ISOVUE-370 200 ML INFUS..BTL IV ONE ×2 (15:33→16:39)
[2018-02-04] MEDS ORDERED: Nitroglycerin 1,000 MCG/10 ML VIAL IV ONE (15:34)
--- NOTE | 2018-02-04 16:12 | Pre-Sedation Evaluation ---
Pre-sedation evaluation - Pre-sedation checklist Date of procedure: 02/04/18 Procedure: [facility] Recent Vitals: Last Vital Signs Temp 97.4 F L 02/04/18 11:48 Pulse 85 02/04/18 11:48 Resp 14 02/04/18 11:48 BP 138/83 02/04/18 11:48 Pulse Ox 99 02/04/18 11:48 H&P (including ROS) documented in medical record: Yes Previous reaction to sedatives/anesthetics: No Dietary Status: NPO after Midnight Airway Assessment: Patient can open mouth completely, TMJ function normal, Micrognathia (under-bite, receding chin) absent, Neck with adequate range of motion Dentition: No loose teeth or bridges Possible difficult airway: No ASA Classification *see protocol: CLASS II-Mild systemic disease Plan of Care: Pt appropriate candidate for procedure/moderate/conscious sedation , Risks/benefits of procedure/sedation discussed w/ patient/family Cardiac Registry (Cardio Only) - Functional Capacity Functional Capacity: < 4 METS - Clincal Frailty Scale Clinical Frailty Scale: Vulnerable
[2018-02-04] MEDS ORDERED: methylPREDNISolone 125 MG/2 ML VIAL ONE (16:16)
[2018-02-04] MEDS ORDERED: *HR* FentaNYL (PF) 100 MCG/2 ML VIAL ONE (16:16)
[2018-02-04] MEDS ORDERED: *HR* Midazolam HCl 2 MG/2 ML VIAL ONE ×2 (16:16→16:43)
[2018-02-04] MEDS ORDERED: *HR* Bivalirudin 250 MG VIAL IVC ONE ×2 (16:50→17:20)
[2018-02-04] MEDS ORDERED: *HR* Ticagrelor 90 MG TABLET ONE (17:48)
--- NOTE | 2018-02-04 19:36 | Invasive Diagnostic Lab Proc ---
Name: Obinna Templeton Date of Study: 02/04/2018 Date: 1955 Ht: 72.8in Medical Record#: [id number] Age: 62 Wt: 163.14lb Gender: Male BSA: 1.97 Order #: [id number] BMI: 21.62 Physicians Procedure Physician: [facility] Ty [facility] Referring MD: Referring MD: Staff Name Position Time In RoxieRosalia RN Monitor 04:03 PM Deck, Kami RN [facility] Attendant 04:03 PM Nirali Treviño RT (R) Scrub 04:03 PM Deck, Kami RN Scrub 04:18 PM Yu Perez RN [facility] Attendant 04:18 PM Allison Pearson RN [facility] Attendant 04:18 PM Indications Indication Abnormal Test - Stress Procedures Performed Procedure L HRT ART/GRFT ANGIO PRQ CARD SCAR STENT W/ANGIO 1 VSL PRQ CARD SCAR STENT W/ANGIO 1 VSL Pre-Procedure Checklist Informed consent is complete signed and on chart. H&P is on chart. ID band is on and ID verified with patient. Patient NPO for procedure The procedure was described for the patient and questions were answered. ECG is on chart. Plan of Care Patient will tolerate the procedure without complications. Adequate level of comfort will be maintained. Hemodynamics will remain stable Patient will recover from procedure without complications. Respiratory function will be maintained. Cardiac rhythm will remain stable. Patient temperature will be maintained. Patient and/or family have verbalized understanding of the procedure. Patient Education Chief Complaint/Reason for Test: Cardiac Cath Developmental Category: Geriatric (65+ years) Developmentally Appropriate for Age: Yes Learning Barriers: None Education Needs: Procedure Education Method: Verbal Information Taught: Cardiac Cath Educational Evaluation: Able to repeat information Intravenous Access Time IV Size Location DC'd Fluid/Drip Rate Units RN 20g 1 /" Patent On Arrival Lt Antecubital 0.9NaCl mg/hr Allergies Contrast Media, Iodine Related diphenhydramine HEART CATH DYE Vital Signs Time BP (mmHg) HR (bpm) O2 Sat. RR (bpm) LOC 04:15 PM / % 5 = Fully awake and oriented or at pre-proc level 04:15 PM / % 4 = Oriented but drowsy 04:38 PM / % 4 = Oriented but drowsy 04:38 PM / % 4 = Oriented but drowsy 04:53 PM / % 4 = Oriented but drowsy 05:09 PM / % 4 = Oriented but drowsy 05:24 PM / % 4 = Oriented but drowsy 04:16 PM 173 / 95 89 % 16 04:21 PM 157 / 82 73 100 % 24 04:26 PM 139 / 75 72 100 % 14 04:31 PM 136 / 74 72 100 % 11 04:36 PM 149 / 81 74 100 % 10 04:41 PM 148 / 81 72 100 % 22 04:46 PM 140 / 74 71 100 % 10 04:47 PM 110 / 61 69 100 % 10 04:48 PM 80 / 53 82 100 % 12 04:50 PM 131 / 71 74 100 % 9 04:56 PM 113 / 59 78 99 % 10 05:01 PM 137 / 73 73 100 % 19 05:06 PM 112 / 69 79 100 % 20 05:11 PM 137 / 79 76 100 % 15 05:16 PM 131 / 71 82 99 % 19 05:21 PM 126 / 78 79 100 % 18 05:22 PM 115 / 67 69 100 % 17 05:26 PM 124 / 75 83 100 % 12 05:31 PM 123 / 71 80 98 % 17 05:36 PM 138 / 77 80 98 % 19 05:41 PM 133 / 72 82 98 % 20 05:46 PM 112 / 72 71 98 % 9 06:15 PM 143 / 84 77 % 16 5 = Fully awake and oriented or at pre-proc level 06:33 PM 144 / 81 75 96 % 10 5 = Fully awake and oriented or at pre-proc level 06:51 PM 139 / 78 74 97 % 10 5 = Fully awake and oriented or at pre-proc level 07:00 PM 150 / 82 74 97 % 18 4 = Oriented but drowsy 07:19 PM 138 / 95 77 99 % 10 5 = Fully awake and oriented or at pre-proc level Procedural Medications Time Medication Dose Units Method Given By 04:08 PM Oxygen 2 L/min nasal cannula Kami Lane RN 04:18 PM Versed 2 mg Intravenous Allison Pearson RN 04:18 PM Fentanyl 50 mcg Intravenous Allison Pearson RN 04:19 PM Solu-medrol 125 mg Intravenous Allison Pearson RN 04:21 PM Lidocaine 2% 15 ml Subcutaneous Tiffany Ty MD, FACC 04:33 PM Angiomax 0.75mg/kg bolus: 11 ml Intravenous Mavis, Allison RN 04:33 PM Angiomax 1.75mg/kg/hr: 26 ml/hr Intravenous Allison Pearson RN 04:45 PM Versed 1 mg Intravenous Allison Pearson RN 04:45 PM Fentanyl 25 mcg Intravenous Allison Pearson RN 05:24 PM Nitroglycerin 200 mcg Intracoronary Tiffany Ty MD, FACC 05:47 PM Nitroglycerin 200 mcg Intracoronary Tiffany Ty MD, FACC 06:04 PM Brilinta 180 mg Orally Allison Pearson RN ASA Classification: CLASS II- Mild systemic disease (i.e. well-controlled diabetes, hypertension, asthma, cigarette smoking) Haim Score Preprocedure Postprocedure Activity 2- Moves 4 extremities sustained head lift Activity 2- Moves 4 extremities sustained head lift Circulation 2- SBP +/= 20 points of pre-anesthetic level Circulation 2- SBP +/= 20 points of pre-anesthetic level Consciousness 2- Awake and alert oriented x 3 Consciousness 2- Awake and alert oriented x 3 O2 Saturation 2- Able to maintain O2 satruation of 92% on room air O2 Saturation 2- Able to maintain O2 satruation of 92% on room air Respiratory 2- Able to deep breathe and cough well Respiratory 2- Able to deep breathe and cough well Total Score 10 Total Score 10 Contrast Agent: Isovue Diagnostic Contrast: 257 ml Total Contrast: 257 ml Fluoro Dose: 40582 mGy Procedure Log Time Note Enter By 03:56 PM CathStat 04:03 PM Pt arrived to laborer concrete paving 2 at 16:03 [email or web address] 04:03 PM Rosalia Faustin RN Position: Monitor Time in: 16:03 [email or web address] 04:03 PM Patient charges- Angio tray pack, Navilyst 3mm J, Pulse Oximetry and ACIST tubing and transducer 04:07 PM Physician arrived 16:07 kellee 04:07 PM Toby and esther completed 04:07 PM Sign in performed according to hospital policy. 04:07 PM Procedure start 16:07 04:08 PM Case Start 04:08 PM Time: 16:08 Oxygen on at 2 L/min per nasal cannula by Kami Lane RN [email or web address] 04:14 PM Recorded ECG: HR=90 Condition=Condition 1 04:15 PM Vitals capture started with the following parameters, Patient=Adult, Interval=5 min, Initial Srhndlvm=848 mmHg, Deflation Rate=5 mmHg, Cuff placed on Right Arm 04:15 PM Time: 16:15 Patient comfortable and pain free: Yes mm 04:15 PM Time: 16:15LOC: 5 = Fully awake and oriented or at pre-proc level 04:16 PM HR=89 bpm, OADS=079/95 mmhg, Resp=16 B/min 04:17 PM ASA Class CLASS II- Mild systemic disease (i.e. well-controlled diabetes, hypertension, asthma, cigarette smoking) mm 04:[address] RN Position: Scrub Time in: 16:18 [email or web address] 04:18 PM Yu Perez RN Position: Childrens Club Attendant Time in: 16:18 04:18 PM Allison Pearson RN Position: Childrens Club Attendant Time in: 16:18 [email or web address] 04:18 PM Time: 16:18 Versed 2 mg Intravenous Given by Allison Pearson RN 04:18 PM Time: 16:18 Fentanyl 50 mcg Intravenous Given by Allison Pearson RN 04:19 PM Time: 16:19 Solu-medrol 125 mg Intravenous Given by Allison Pearson RN 04:19 PM Time out performed according to hospital policy 04:20 PM Pressure channel 1 zeroed. 04:21 PM HR=73 bpm, DEIH=104/82 mmhg, HiD1=382.0 %, Resp=24 B/min, Comment=nsr 04:21 PM Time: 16:21 15 ml Lidocaine 2% to right groin Subcutaneous Given by Tiffany Ty MD, [facility] 04:22 PM Access obtained by percutaneous puncture. 5Fr 10cm Terumo [place] sheath placed in right Femoral artery. [id number] 04:22 PM 0.035 145cm Navilyst 3mmJ wire [id number] 04:22 PM 5Fr FL 4 catheter inserted over the wire [facility] 04:23 PM wire removed 04:23 PM LCA angiography performed in multiple views. tsoummers 04:24 PM Recorded Pressure: Ao, HR=73, Condition=Condition 1 (Aorta) Ao 132/90/110 04:25 PM Catheter removed tsoummers 04:25 PM 5Fr FR 4 catheter inserted over the wire [facility] tsoummers 04:26 PM HR=72 bpm, KLBH=566/75 mmhg, LjL2=136.0 %, Resp=14 B/min 04:26 PM Recorded Pressure: Ao, HR=74, Condition=Condition 1 (Aorta) Ao 125/89/108 04:26 PM RCA angiography performed in multiple views. tsoummers 04:26 PM Recorded Pressure: Ao, HR=73, Condition=Condition 1 (Aorta) Ao 63/23/41 04:27 PM SVG to the Diagonal angio performed in multiple views. tsoummers 04:28 PM Catheter removed tsoumm 04:28 PM 5Fr IM catheter inserted over the wire [id number] tsoummers 04:29 PM Recorded Pressure: Ao, HR=73, Condition=Condition 1 (Aorta) Ao 128/91/110 04:29 PM Left FRITZ to the LAD angio performed in multiple views. tsoummers 04:29 PM Catheter removed tsoumm 04:30 PM 5Fr Pigtail catheter inserted over the wire [facility] tsoummers 04:30 PM Time: 16:15 Patient comfortable and pain free: Yes tsoummers 04:30 PM Time: 16:15LOC: 4 = Oriented but drowsy tsoummers 04:30 PM Catheter selectively placed in left ventricle tsoummers 04:31 PM HR=72 bpm, ZEHR=747/74 mmhg, OyT3=942.0 %, Resp=11 B/min 04:31 PM Pressure channel 1 zeroed. 04:31 PM Recorded Pressure: LV, HR=72, Condition=Condition 1 (Left Ventricle) LV 102/16/20 04:31 PM Bolus angiogram of left Ventricle complete: 8 ml/sec for a total of 24 mls tsoummers 04:31 PM Catheter removed tsoummers 04:31 PM Inflation device was opened. tsoummers 04:32 PM Recorded Pressure: LV, Ao, HR=72, Condition=Condition 1 (Left Ventricle) LV 107/30/40, (Aorta) Ao 115/80/97 04:33 PM Dfib pads placed on chest tsoummers 04:33 PM Sheath exchanged for a 6 Fr 11 cm Cordis Funmi sheath [id number] collin 04:33 PM Time: 16:33 Angiomax 0.75mg/kg bolus: 11 ml Intravenous Given by Allison Pearson RN 04:33 PM Time: 16:33 Angiomax 1.75mg/kg/hr: 26 ml/hr Intravenous Given by Allison Pearson RN You pump collin 04:36 PM HR=74 bpm, ORFO=986/81 mmhg, CpK9=414.0 %, Resp=10 B/min 04:38 PM Time: 16:38 Patient comfortable and pain free: Yes barry 04:38 PM Time: 16:38LOC: 4 = Oriented but drowsy barry 04:41 PM HR=72 bpm, KJKJ=593/81 mmhg, YmB3=269.0 %, Resp=22 B/min 04:42 PM 6Fr EBU 3.5 Medtronic guide catheter was used to cannulate the PCI vessel successfully. reused? No [email or web address] 04:42 PM Recorded Pressure: Ao, HR=73, Condition=Condition 1 (Aorta) Ao 130/65/93 04:43 PM .014 Prowater 180cm guide wire across target lesion- successful. reused? No collin 04:45 PM Time: 16:45 Versed 1 mg Intravenous Given by Allison Pearson RN 04:45 PM Time: 16:45 Fentanyl 25 mcg Intravenous Given by Allison Pearson RN 04:45 PM 2.0 mm x 15 mm Emerge Monorail balloon across target lesion- successful. reused? No collin 04:46 PM HR=71 bpm, TMMI=713/74 mmhg, YnJ3=522.0 %, Resp=10 B/min 04:46 PM Balloon inflated @ 10 shelia for 20 seconds [email or web address] 04:46 PM NIBP STAT measurement started. 04:46 PM Balloon inflated @ 10 shelia for 20 seconds [email or web address] 04:47 PM HR=69 bpm, YVGO=239/61 mmhg, FgE2=214.0 %, Resp=10 B/min 04:47 PM Balloon inflated @ 12 shelia for 20 seconds collin 04:47 PM NIBP STAT measurement started. 04:47 PM Balloon inflated @ 12 shelia for 20 seconds tsoummers 04:48 PM HR=82 bpm, NIBP=80/53 mmhg, BoB4=342.0 %, Resp=12 B/min 04:48 PM Balloon inflated @ 12 shelia for 20 seconds tsoummers 04:49 PM Balloon catheter removed intact. tsoummers 04:49 PM NIBP STAT measurement started. 04:50 PM HR=74 bpm, CMWB=355/71 mmhg, YwB7=458.0 %, Resp=9 B/min 04:50 PM 2.5 mm x 15 mm Emerge Monorail balloon across target lesion- successful. reused? No tsoummers 04:51 PM Balloon inflated @ 8 shelia for 20 seconds tsoummers 04:51 PM Recorded Pressure: Ao, HR=70, Condition=Condition 1 (Aorta) Ao 98/59/78 04:52 PM Balloon inflated @ 10 shelia for 15 seconds tsoummers 04:52 PM Balloon inflated @ 10 shelia for 15 seconds tsoummers 04:53 PM Balloon inflated @ 12 shelia for 15 seconds tsoummers 04:53 PM Time: 16:38LOC: 4 = Oriented but drowsy tsoummers 04:53 PM Time: 16:38 Patient comfortable and pain free: Yes tsoummers 04:54 PM Balloon inflated @ 14 shelia for 15 seconds tsoummers 04:55 PM Balloon inflated @ 14 shelia for 30 seconds tsoummers 04:56 PM HR=78 bpm, ARWT=862/59 mmhg, SpO2=99.0 %, Resp=10 B/min 04:56 PM Balloon inflated @ 14 shelia for 30 seconds tsoummers 04:58 PM Balloon catheter removed intact. tsoummers 05:00 PM 2.5 mm x 12mm NC Trek Rx balloon across target lesion- successful. reused? No tsoummers 05:01 PM 500cc bolus 0.9NS administered tsoummers 05:01 PM HR=73 bpm, XRJC=301/73 mmhg, LiZ5=153.0 %, Resp=19 B/min 05:01 PM Balloon inflated @ 14 shelia for 25 seconds tsoummers 05:02 PM Balloon inflated @ 18 shelia for 20 seconds tsoummers 05:03 PM Balloon inflated @ 18 shelia for 20 seconds tsoummers 05:05 PM Balloon inflated @ 18 shelia for 30 seconds tsoummers 05:05 PM Lesion found in Proximal Circumflex. Pre Stenosis: 90 Pre EV Flow: 3: Complete and Brisk Flow/Perfusion tsoummers 05:05 PM Circumflex, Obtuse Marginal, Left Posterior Descending, and Left Posterolateral Coronary Arteries with 99 % stenosis. If graft is supplying this area, 0 % stenosis tsoummers 05:06 PM HR=79 bpm, CAMV=773/69 mmhg, CaZ4=386.0 %, Resp=20 B/min 05:06 PM Balloon inflated @ 18 shelia for 20 seconds tsoummers 05:08 PM Balloon catheter removed intact. tsoummers 05:09 PM 3.0 mm x 15 mm Emerge Monorail balloon across target lesion- successful. reused? No tsoummers 05:09 PM Time: 16:53LOC: 4 = Oriented but drowsy tsoummers 05:09 PM Time: 16:53 Patient comfortable and pain free: Yes tsoummers 05:11 PM HR=76 bpm, YGGH=146/79 mmhg, FaS3=615.0 %, Resp=15 B/min 05:11 PM Balloon inflated @ 8 shelia for 20 seconds tsoummers 05:12 PM Balloon inflated @ 10 shelia for 20 seconds tsoummers 05:13 PM Balloon inflated @ 14 shelia for 30 seconds tsoummers 05:14 PM Balloon inflated @ 14 shelia for 30 seconds tsoummers 05:16 PM Balloon catheter removed intact. tsoummers 05:16 PM HR=82 bpm, YTTI=680/71 mmhg, SpO2=99.0 %, Resp=19 B/min 05:16 PM Recorded Pressure: Ao, HR=82, Condition=Condition 1 (Aorta) Ao 120/64/90 05:17 PM 3.0 mm x 12mm NC Trek Rx balloon across target lesion- successful. reused? No tsoummers 05:19 PM Balloon inflated @ 14 shelia for 30 seconds tsoummers 05:20 PM Balloon inflated @ 18 shelia for 15 seconds tsoummers 05:21 PM Balloon inflated @ 14 shelia for 20 seconds tsoummers 05:21 PM HR=79 bpm, ISQI=413/78 mmhg, JzA5=573.0 %, Resp=18 B/min 05:21 PM Balloon inflated @ 18 shelia for 20 seconds tsoummers 05:21 PM NIBP STAT measurement started. 05:22 PM Balloon inflated @ 18 shelia for 20 seconds tsoummers 05:22 PM HR=69 bpm, TSLT=520/67 mmhg, GuO2=623.0 %, Resp=17 B/min 05:23 PM Balloon catheter removed intact. tsoummers 05:24 PM Time: 17:09 Patient comfortable and pain free: Yes tsoummers 05:24 PM Time: 17:09LOC: 4 = Oriented but drowsy tsoummers 05:24 PM Time: 17:24 Nitroglycerin 200 mcg Intracoronary Given by Tiffany Ty MD, [facility] tsoummers 05:26 PM HR=83 bpm, QFSX=935/75 mmhg, YjI7=787.0 %, Resp=12 B/min 05:28 PM 3.5mm x 38mm Synergy drug-eluting stent across target lesion- successful Lot #[id number] tsoummers 05:30 PM new bag of angiomax started as previous finished tsoummers 05:31 PM HR=80 bpm, UZFM=015/71 mmhg, SpO2=98.0 %, Resp=17 B/min 05:32 PM Stent removed intact. Not deployed tsoummers 05:32 PM 3.0 x 12 mm NC trek reinserted tsoummers 05:34 PM Recorded Pressure: Ao, HR=81, Condition=Condition 1 (Aorta) Ao 111/64/87 05:35 PM Balloon catheter removed intact. Not inflated tsoummers 05:36 PM HR=80 bpm, BVHS=955/77 mmhg, SpO2=98.0 %, Resp=19 B/min, Comment=NSR 05:36 PM 3.0 mm x 15mm NC Trek Rx balloon across target lesion- successful. reused? No tsoummers 05:38 PM Balloon inflated @ 12 shelia for 20 seconds tsoummers 05:39 PM Balloon inflated @ 12 shelia for 20 seconds tsoummers 05:39 PM Time: 17:24LOC: 4 = Oriented but drowsy tsoummers 05:39 PM Time: 17:24 Patient comfortable and pain free: Yes tsoummers 05:39 PM Balloon inflated @ 14 shelia for 20 seconds tsoummers 05:40 PM Balloon inflated @ 14 shelia for 20 seconds tsoummers 05:41 PM HR=82 bpm, AAHH=690/72 mmhg, SpO2=98.0 %, Resp=20 B/min, Comment=NSR 05:41 PM Balloon inflated @ 14 shelia for 20 seconds tsoumm 05:41 PM Balloon inflated @ 14 shelia for 20 seconds tsoumm 05:42 PM Balloon catheter removed intact. [facility] 05:44 PM 3.5 x 38 synergy reinserted [facility] 05:45 PM Stent deployed @ 12 shelia for 30 seconds oumm 05:45 PM Stent balloon reinflated @ 14 shelia for 15 [facility] 05:46 PM HR=71 bpm, SFST=587/72 mmhg, SpO2=98.0 %, Resp=9 B/min 05:47 PM Time: 17:47 Nitroglycerin 200 mcg Intracoronary Given by Tiffany Ty MD, [facility] 05:47 PM Recorded Pressure: Ao, HR=84, Condition=Condition 1 (Aorta) Ao 110/62/85 05:48 PM Stent delivery system removed intact. mm 05:49 PM Guide wire removed intact. mm 05:49 PM Guide catheter [facility]. [facility] 05:[facility] PM Procedure completed at 17:49 02/04/2018[facility] 05:49 PM Did you address EV flow and Dominance? Yes [facility] 05:51 PM Sign out completed: Radiation Dose 1504.84 mGy, 99102 cGy/cm2 Fluoro Time: 24.4 Isovue 370 - 200ml contrast 257 ml given by Tiffany Ty MD, [facility]. Complications: NoneCardiac Rehab Consult needed: YesConfirmed administered medications: Yes [facility] 05:51 PM Isovue 370 - 200ml,3 Bottle(s) used. [facility] 05:51 PM Sheath left in place to be pulled on floor/holding area tsmm 05:51 PM Estimated Blood Loss: less than 20cc tsoummers 05:51 PM Post ECG NSR tsoumm 05:51 PM Post Blood Pressure 137/85 [facility] 05:54 PM Information taught Cardiac Cath and [facility] 05:54 PM Education needs Procedure, Plan of Care, and Responsibilities of Patient in Care tsmmers 05:54 PM Learning barriers :None [facility] 05:54 PM Education Methods Verbal 05:54 PM Education evaluation Able to repeat information 05:55 PM Site status No bleeding/hematoma - Rt Groin as reported by Kami Lane RN at 17:55 ou 05:55 PM Opsite applied 05:55 PM Plavix, Effient or Brilinta given Yes mm 05:55 PM Family placed in consult room. mm 05:55 PM Complications: None 05:55 PM Fluoro Time: 24.4 mm 05:55 PM Isovue 370 - 200ml contrast [address] Ty. mm 05:55 PM Radiation Dose 1504.84 mGy 05:58 PM Coronary Dominance: Co-dominant mm 05:59 PM Lesion found in Proximal LAD. Pre Stenosis: 100 Pre EV Flow: 0: No Flow/No perfusion mm 06:01 PM Report given to Julia SEALS Pt taken to Room #05. 18:01 mm 06:01 PM Lesion found in Distal LMCA. Pre Stenosis: 99 Pre EV Flow: tsoummers 06:02 PM Left Main Coronary Artery with 99% stenosis tsoumm 06:02 PM Lesion found in 1st Marginal. Pre Stenosis: 99 Pre EV Flow: oummers 06:02 PM Lesion found in Proximal RCA. Pre Stenosis: 100 Pre EV Flow: 0: No Flow/No perfusion [facility] 06:04 PM Mid/Distal Left Anterior Descending Coronary Artery and diagonal branches with 0% stenosis. If graft is supplying this area, 40 % stenosis [facility] 06:04 PM Right Coronary, Right Posterior Descending Arteries with Right Posterolateral and Acute Marginal branches with 100 % stenosis. If graft is supplying this area, 0 % stenosis [facility] 06:04 PM Proximal Left Anterior Descending Coronary Artery with 100% stenosis. If graft is supplying this territory, 0 % stenosis. mm 06:04 PM Time: 18:04 Brilinta 180 mg crushed Orally Given by Allison Pearson RN barry 06:05 PM Delay to floor Bed availability [facility] 06:05 PM waiting for [facility] bed to be cleaned. Will wait in holding room until cleaned [facility] 06:06 PM Patient out of room: 18:06 [email or web address] 07:19 PM Kodi Weston called and gave updated report to 2N RN vero 07:20 PM Pt transported to [facility] via stretcher kkjose 07:25 PM UPdated report called to Guillermina SEALS on 2N kkallner 07:26 PM Delay to floor Bed availability [email or web address] 07:26 PM Complications: None kkjose 07:26 PM Patient out of room: 19:26 vero Complications Complication None None Hemodynamics Pressures Site Systolic/A Wave Diastolic/V Wave Mean AO 132 90 110 AO 125 89 108 AO 63 23 41 AO 128 91 110 LV 102 16 20 LV 107 30 40 AO 115 80 97 AO 130 65 93 AO 98 59 78 AO 120 64 90 AO 111 64 87 AO 110 62 85 Post Procedure Information Blood Pressure: 137/85 mmHg Rhythm: NSR Post procedural instructions were given Site Checks Time Location Status Staff Sheath In? Note 05:55 PM Rt Groin No bleeding/hematoma Kami Lane RN Yes 04:15 PM Rt Groin No bleeding/ No Hematoma Kodi Weston RN Yes 06:32 PM Rt Groin No bleeding/ No Hematoma Andra Mackenzie RT 06:51 PM Rt Groin No bleeding/ No Hematoma Andra Mackenzie RT Yes 07:00 PM Rt Groin No bleeding/ No Hematoma Kodi Weston RN Yes 07:19 PM Rt Groin No bleeding/ No Hematoma Andra Mackenzie RT Pulses Time Site Pre-Procedure Post-Procedure Note Bilateral DP & PT 2+ Rt Radial 2+ 02/04/2018 6:33:00 PM Bilateral DP & PT 2+ 02/04/2018 6:51:00 PM Bilateral DP & PT 2+ 02/04/2018 9:00:00 AM Bilateral DP & PT 2+ Updated by Andra Mackenzie RT (R) on 02/04/2018 7:27:51 PM electronically signed on 02/04/2018 7:28:29 PM with status of Final
[2018-02-04] MEDS ORDERED: *HR* Atropine Sulfate 1 MG/10 ML SYRINGE ONE (22:13)
[2018-02-05 05:50] LABS: Hematocrit 29.2 % (37.5-50.1); Hemoglobin 9.8 g/dL (12.9-16.9)
[2018-02-05 06:12] LABS: BUN/Creatinine Ratio 22 (6-26); Blood Urea Nitrogen 31 mg/dL (8-23); Troponin I 0.06 ng/mL (< 0.04); eGFR For African Americans > 60 (> 60); eGFR For Non-African Americans 51 (> 60)
[2018-02-05] MEDS: *HR* Heparin 5,000 UNIT/ML VIAL SQ SCH (06:38)
[2018-02-05] MEDS: Gabapentin 300 MG CAPSULE PO SCH ×2 (08:33→11:33)
[2018-02-05] MEDS: Aspirin Enteric Coated 81 MG Tablet PO SCH (08:33)
[2018-02-05] MEDS: Insulin LISPRO 300 UNITS/3 ML VIAL SQ SCH ×2 (08:35→11:34)
--- NOTE | 2018-02-05 09:16 | Electrocardiograph Report ---
[address] [place], [place] [address] Test Date: 2018-02-03 Pat Name: Obinna Templeton Department: 103 Room: 2N05 Gender: M Brim Presser: AM : 1955 Requested By: Carroll Candelaria Order Number: [id number] Reading MD: Galileo Greenwood Measurements Intervals [place] Rate: 84 P: 38 ID: [id number] QRS: 27 QRSD: 90 T: 29 QT: 336 QTc: 377 Interpretive Statements SINUS RHYTHM WITH OCCASIONAL ECTOPIC PREMATURE COMPLEXES Electronically Signed On 02-05-2018 9:13:57 EDT by Galileo Greenwood
--- NOTE | 2018-02-05 10:10 | Cardiology Progress Note ---
Date of Encounter: 02/05/18 Time of Encounter: 10:08 Assessment and Plan (1) CAD (coronary artery disease) Current Visit: Yes Status: Acute Known hx of CAD and s/p PCI and CABG x 3 in 1998. S/P LHC yesterday for abnormal stress test and unstable angina. Revealed triple vessel CAD. S/P CABG 4/5 patent bypass grafts. EF 50%. Successful PTCA/SCAR to pLCx and distal left main. Symptoms now resolved. DAPT (ASA and Plavix) uninterrupted x 1 year. Pt verbalizes understanding. Continue Statin, ACEi, BB. Cardiac rehab ordered. Restrictions discussed. Right femoral access site healing well. No bleeding or hematoma, mild ecchymosis noted. HGB mildly decreased, 9.8 today, was 10.6 yesterday. Denies active bleeding. Renal function mildly worsened today--creatinine 1.40, was 1.23 yesterday, 1.39 on admission--tends to fluctuate based on past labs. Cardiology signing off. Reconsult PRN. Will coordinate outpt follow-up in 3-4 weeks. Qualifiers: Coronary Disease-Associated Artery/Lesion type: [place] artery [place] vs. transplanted heart: [place] heart Associated angina: with unstable angina Qualified Code(s): I25.110 - Atherosclerotic heart disease of [place] coronary artery with unstable angina pectoris (2) Cardiomyopathy Current Visit: Yes Status: Acute Mildly reduced LVEF 45-50%. Normal LV chamber size and wall thickness. Mild global left ventricular systolic dysfunction. Mild left ventricular diastolic dysfunction. Euvolemic on exam. Continue BB and ACEi. Qualifiers: Cardiomyopathy type: unspecified Qualified Code(s): I42.9 - Cardiomyopathy , unspecified Discussion w patient/family: The assessment and plan as outlined above was discussed with the patient and/or family members who expressed understanding and agreement. All questions were answered. Thank you for involving us in the care of your patient. Please call with any questions. I will discuss all the above with Dr. Melo and make changes as necessary. Subjective Principal diagnosis: Abnormal stress, unstable angina, CAD Interval history: S/P LHC yesterday. Triple vessel CAD. S/P CABG 4/5 patent bypass grafts. EF 50% . Successful PTCA/SCAR to pLCx and distal left main. Pt reports feeling "great" this morning. Denies chest pain or dyspnea overnight. Objective Vital Signs, Last 4 Hours Temp Pulse Resp BP 02/05/18 08:43 97.5 F L 72 18 118/67 02/05/18 06:30 74 113/62 Vital Signs Temp Pulse Resp BP Pulse Ox 02/05/18 08:43 97.5 F L 72 18 118/67 02/05/18 06:30 74 113/62 02/05/18 05:30 74 113/62 02/05/18 04:30 69 100/66 02/05/18 03:45 75 02/05/18 03:30 98.5 F 71 19 99/56 96 02/05/18 02:30 75 101/55 02/05/18 02:00 71 99/59 02/05/18 01:30 78 94/53 02/05/18 01:15 80 113/59 02/05/18 01:00 81 116/66 02/05/18 00:45 76 122/76 02/05/18 00:30 79 109/74 02/05/18 00:15 77 120/65 02/05/18 00:10 76 115/70 02/05/18 00:05 76 116/66 02/05/18 00:00 79 129/78 02/04/18 23:55 79 129/78 02/04/18 23:11 97.5 F L 75 18 121/71 97 02/04/18 23:00 75 121/71 02/04/18 22:30 78 130/82 02/04/18 22:00 75 129/75 02/04/18 21:30 75 117/83 02/04/18 21:00 118 157/86 02/04/18 20:30 75 158/83 02/04/18 20:00 79 153/100 02/04/18 19:45 98.0 F 79 18 154/95 99 02/04/18 19:30 77 02/04/18 11:48 97.4 F L 85 14 138/83 99 Intake and Output 02/04/18 02/05/18 02/05/18 23:59 07:59 15:59 Intake Total 240 / 240 360 / 360 Output Total 730 / 730 Balance -490 / -490 360 / 360 Intake: Oral 240 / 240 360 / 360 Output: Urine 730 / 730 Other: Meal Breakfast Percent of Meal Consumed 100% Blood Glucose* 151 301 General: Conversant, No Apparent Distress HEENT: Atraumatic, Normocephaly, Mucus Membranes Moist Neck: No JVD Cardiac: Reg Rate and Rhythm, Normal S1 and S2, No Murmur Lungs: Normal Breath Sounds, No Wheeze, Rales, Rhonchi Neuro: Alert and responsive, No focal deficits noted Abdomen: Soft, Non-Tender Skin: Other (right femoral access site healing well. No bleeding or hematoma. Mild ecchymosis noted.) Musculoskeletal: No Chest Wall Tenderness Extremities: No Clubbing, No Cyanosis, No Edema, Normal Pulses Results 02/05/18 05:12 02/05/18 05:12 Lab Results 02/05/18 02/05/18 05:12 05:12 Hgb 9.8 L Hct 29.2 L Plt Count 176 BUN 31 H Creatinine 1.40 H Troponin I 0.06 H* Short CBC 02/05/18 Range/Units 05:12 Hgb 9.8 L (12.9-16.9) g/dL Hct 29.2 L (37.5-50.1) % Plt Count 176 (140-400) K/mcL BMP 02/05/18 Range/Units 05:12 BUN 31 H (8-23) mg/dL Creatinine 1.40 H (0.70-1.30) mg/dL Cardiac Enzymes 02/05/18 Range/Units 05:12 Troponin I 0.06 H* (< 0.04) ng/mL Impressions Brain MRI 02/03/18 11:06 IMPRESSION: 1. No acute intracranial abnormality. Specifically, no acute infarction. 2. Parenchymal volume loss and sequela of chronic microvascular ischemic changes. D/ / 02/03/2018 12:52:44 Delvis Fierro MD / earnold Interpreting Provider: Delvis iFerro MD Echocardiogram 02/03/18 11:08 Impressions: LVEF 45-50%. Normal LV chamber size and wall thickness. Mild global left ventricular systolic dysfunction. Mild left ventricular diastolic dysfunction. Atypical septal motion consistent with post-operative status. Normal right ventricular structure and function. No evidence of pulmonary hypertension. No significant valvular dysfunction. Left Ventricular Wall Motion: Rest Echo Findings The apex, apical inferior, mid inferior, basal inferior, apical anterior, mid anterior, basal anterior, apical septal, mid inferior septal, basal inferior septal, apical lateral, mid anterior lateral, basal anterior lateral, mid anterior septal, mid inferior lateral, basal anterior septal and basal inferior lateral caldera were hypokinetic. Findings: Study Quality * Technically adequate exam. ECG Findings * Normal sinus rhythm. Left Ventricle * LVEF 45-50%. * Normal LV chamber size and wall thickness. * Mild global left ventricular systolic dysfunction. * Mild left ventricular diastolic dysfunction. * Atypical septal motion consistent with post-operative status. Right Ventricle * Normal right ventricular structure and function. Left Atrium * Moderately dilated left atrium. Right Atrium * Normal right atrial size. Interatrial Septum * No evidence of a PFO with agitated saline contrast. Aortic Valve * Trileaflet aortic valve with normal function. * No aortic regurgitation. * No aortic stenosis. Mitral Valve * Normal mitral valve structure and function. * Trace mitral regurgitation. * No mitral stenosis. Tricuspid Valve * Normal tricuspid valve structure and function. * Trace tricuspid regurgitation. * No evidence of pulmonary hypertension. Pulmonic Valve * Normal pulmonic valve structure and function. * No pulmonic regurgitation. Aorta * Normally sized aortic root. Pericardium * The pericardium appears normal. IVC * Normal IVC dimensions and inspiratory collapse. Pulmonary Artery * Normal visualized portions of the main pulmonary artery. Active Medications Aspirin (Aspirin Ec) 81 mg PO DAILY [facility] Stop: 08/06/18 09:01 Last Admin: 02/05/18 08:33 Dose: 81 mg Atorvastatin Calcium (Lipitor) 80 mg PO HS [facility] Stop: 08/06/18 21:01 Last Admin: 02/04/18 20:12 Dose: 80 mg Carvedilol (Coreg) 3.125 mg PO BIDWM [place] PRN Reason: Protocol Stop: 08/06/18 17:01 Last Admin: 02/05/18 08:33 Dose: 3.125 mg Clopidogrel Bisulfate (Plavix) 75 mg PO DAILY [facility] Stop: 08/07/18 09:01 Last Admin: 02/05/18 08:33 Dose: 75 mg Dextrose/Water (Dextrose 50% (Syg)) 25 ml IVP AD PRN PRN Reason: Hypoglycemia Stop: 08/05/18 13:07 Gabapentin (Neurontin) 300 mg PO QID [facility] Stop: 08/05/18 13:01 Last Admin: 02/05/18 08:33 Dose: 300 mg Glucagon (Glucagen) 1 mg IM ONCE PRN PRN Reason: Hypoglycemia Stop: 08/05/18 13:07 Glucose (Gluctose) 15 gm PO ONCE PRN PRN Reason: Hypoglycemia Stop: 08/05/18 13:07 Glucose (Gluctose) 30 gm PO ONCE PRN PRN Reason: Hypoglycemia Stop: 08/05/18 13:07 Heparin Sodium (Porcine) (Heparin) 5,000 unit SQ Q12HCO [facility] Stop: 08/05/18 18:01 Last Admin: 02/05/18 06:38 Dose: 5,000 unit Dextrose (Dextrose 5%) 1,000 mls @ 100 mls/hr IVC .Q10H PRN PRN Reason: HYPOGLYCEMIA Stop: 08/05/18 13:07 Insulin Human Lispro (Humalog) 0 units SQ TIDAC [facility] PRN Reason: Protocol Stop: 08/05/18 13:16 Last Admin: 02/05/18 08:35 Dose: 10 units Insulin Human Lispro (Humalog) 0 units SQ HS [facility] PRN Reason: Protocol Stop: 08/05/18 21:01 Last Admin: 02/04/18 20:11 Dose: Not Given Lisinopril (Zestril) 10 mg PO DAILY [facility] PRN Reason: Protocol Stop: 08/06/18 09:01 Last Admin: 02/05/18 08:33 Dose: 10 mg Naloxone HCl (Narcan) 0.4 mg IVP Q2MIN PRN PRN Reason: SEE COMMENTS Stop: 08/05/18 11:09 - Imaging and Cardiology Echo: report reviewed Cardiac cath: report reviewed - EKG Interpretation EKG results cardiology: other (12 hr tele AVG HR 73, SR, no significant pauses or arrhythmias) Consult Discharge Plan - Plan Additional Instructions: RISK FACTORS: STOP SMOKING: If you smoke, STOP. Smoking or tobacco use significantly increases your risk of heart disease because nicotine causes the arteries to narrow or constrict. It also causes fats to stick to the artery. Your chances of having a heart attack are greatly increased if you continue to smoke. For more information, call the education line for smoking cessation 6-894-UCH[place]OA EAT A LOW FAT/CHOLESTEROL/SODIUM DIET: This diet may help reduce your chances of having a heart attack. LIFTING: Avoid lifting anything more than 10 pounds for 5-7 days Prior to straining, laughing, sneezing and/or coughing, apply manual pressure directly over insertion site. ACTIVITY: You may walk or climb stairs as tolerated You can resume sexual activity as tolerated In general, you are encouraged to engage in a minimum of 30 minutes or more of moderate intensity physical activity, such as brisk walking, daily or at least 3 -4 times weekly BATHING Do not submerge the site into water (bath tub, hot tub, swimming pool) for 1 week. This can be a source for infection into the blood stream. You may shower after 24 hours SITE CARE: After 24 hours, you may remove the dressing and leave the site open to air. Keep the site clean and dry. Clean gently and pat dry. You can expect bruising and tenderness that gradually resolve within a week or two. Return to work as instructed per your physician Resume driving as instructed per physician Keep all scheduled follow up appointments Resume medications as instructed IMPORTANT: If prescribed a Platelet Aggregation Inhibitor such as, Plavix, Brilinta or Effient: Duration of therapy is minimum one year These medications are often used in combination with Aspirin in prevention of future heart attacks Never discontinue unless consult with your Egg Sorter STROKE (CVA) Risk factors for a stroke are: Age, cigarette smoking, diabetes, excessive alcohol consumption, family history, high blood pressure, overweight, physical inactivity, prior stroke, heart attack, diagnosis of carotid artery stenosis or other artery disease. Warning signs: Sudden numbness or weakness of the face, arm or leg; especially on one side of the body, sudden confusion, trouble speaking or understanding, sudden trouble seeing in one or both eyes, sudden trouble walking, dizziness, loss of balance or coordination, sudden severe headache with no cause. Call 911 or go to the Emergency Room. CONGESTIVE HEART FAILURE: If you have been diagnosed with Congestive Heart Failure (CHF) and your symptoms return, make an appointment with your physician Weigh yourself daily. Notify your physician if you have a weight gain of two or more pounds in one day or five or more pounds in one week. If you experience any difficulty breathing, please call 911 BLEEDING: Although the risk of bleeding is minimal, it can happen. If you have any bleeding from the site, apply firm pressure above the puncture site for 10-15 minutes. If the bleeding does not stop, continue manual pressure and call 911 Contact your physician if: You develop a fever greater than 101 degrees Fahrenheit Your site becomes reddened or has any drainage You have an increase in pain or burning at the site or if a large knot forms at the site. If you experience chest pain, shortness of breath, dizziness, or extreme tiredness, stop the activity and rest. Please notify your physicians office if you experience any of these symptoms and they are not relieved by rest please call 911! Referrals: Carroll Wilhelm DO [Primary Care Provider] - 02/12/18 12:00 pm Rehan Melo [Partnered Physician] - (Office will call patient at home with follow up appointment)
[2018-02-05 11:33] VITALS: BP 148/89
--- NOTE | 2018-02-05 13:58 | Discharge Summary ---
<Allen Carrillo - Last Filed: 02/05/18 18:29> - NOTES TO OUTPATIENT PROVIDER Notes to Outpatient Provider: Patient presented for lab testing prior to left heart catheterization scheduled 02/05. During testing he complained of chest pain and slurred speech, leading to work up and admission. Head CT and troponins were negative. Echocardiogram showed no acute process, EF 45-50%. CXR showed no acute process. MRI brain showed no acute process. Heart catheterization showed triple vesssel disease, led to drug eluting stent placement in proximal circumflex and distal left main coronaries. Patient will need close outpatient follow up, including serum creatinine level, to ensure improvement after catheterization. Patient will be discharged on Aspirin and Plavix. Orders not resulted at time of discharge: Pending orders 02/04/18 18:00 ECG 12 lead ECG [ECG] Stat Date of Encounter: 02/05/18 Time of Encounter: 13:56 - Discharge Diagnosis (1) Chest pain Priority: Primary Status: Resolved Assessment and Plan: Patient was scheduled for Left Heart Catheterization on 02/05. Presented on 02/03 for pre-cath testing and developed chest pain and slurred speech. He was admitted and worked up for possible CVA and ACS. CT head and MRI brain were negative for acute process. Heart catheterization showed blockage and resulted in stent placement. Patients symptoms and clinical disposition resolved and patient stabilized. Patient medication regimen includes Aspirin, Plavix, Lipitor , Toprol, Lisinopril. Qualifiers: Chest pain type: chest pain due to myocardial ischemia Ischemic chest pain type: stable angina pectoris Qualified Code(s): I20.8 - Other forms of angina pectoris (2) CVA (cerebral vascular accident) Priority: Secondary Status: Ruled-out Assessment and Plan: Patient complained of slurred speech on 02/03, he was admitted and worked up. CT head, MRI brain, and Echocardiogram were all negative for acute process. CVA ruled out. Patient on aspirin and Lipitor. Qualifiers: CVA mechanism: unspecified Qualified Code(s): I63.9 - Cerebral infarction, unspecified (3) Hypertension Priority: Secondary Status: Chronic Assessment and Plan: Continue lisnopril Qualifiers: Hypertension type: essential hypertension Qualified Code(s): I10 - Essential (primary) hypertension (4) Dyslipidemia Priority: Secondary Status: Chronic Assessment and Plan: Continue atorvastatin (5) DVT prophylaxis Priority: Secondary Status: Acute Assessment and Plan: Patient was anticoagulated with subq heparin during admission. Hospital course: Mr. Templeton is a 62 year old male with past medical history of CHF, COPD, CAD, DM, HLD, HTN, PR, and CKD presented for lab testing prior to left heart catheterization scheduled 02/05. During testing he complained of chest pain and slurred speech, leading to work up and admission. Head CT and troponins were negative. Echocardiogram showed no acute process, EF 45-50%. CXR showed no acute process. MRI brain showed no acute process. Heart catheterization showed triple vesssel disease, led to drug eluting stent placement in proximal circumflex and distal left main coronaries. Patient will need close outpatient follow up, including serum creatinine level, to ensure improvement after catheterization. Patient will be discharged on Aspirin and Plavix. - Time Spent with Patient Total time spent providing and/or coordinating discharge services: - Discharge Medications Prescriptions: Atorvastatin [Lipitor] 80 mg PO HS #30 tablet Carvedilol [Coreg] 3.125 mg PO BIDWM #60 tablet Clopidogrel [Plavix] 75 mg PO DAILY #30 tablet Home Medications: Aspirin [Lo-Dose Aspirin EC] 81 mg PO DAILY 02/03/18 [History] Gabapentin [Neurontin] 600 mg PO BID 02/03/18 [History] Glimepiride [Amaryl] 4 mg PO BID 02/03/18 [History] Lisinopril [Zestril] 10 mg PO DAILY 02/03/18 [History] Metformin HCl 1,000 mg PO BID 02/03/18 [History] Atorvastatin [Lipitor] 80 mg PO HS #30 tablet 02/05/18 [Rx] Carvedilol [Coreg] 3.125 mg PO BIDWM #60 tablet 02/05/18 [Rx] Clopidogrel [Plavix] 75 mg PO DAILY #30 tablet 02/05/18 [Rx] Allergies/Adverse Reactions: 3 Allergy/AdvReac Type Severity Reaction Status Date / Time diphenhydramine AdvReac Rash Verified 02/03/18 18:51 [From Benadryl] "HEART CATH DYE" AdvReac See Uncoded 02/03/18 18:51 Comments Date of admission: 02/03/18 11:33 Primary care physician: Carroll Wilhelm DO Consults: 02/04/18 18:00 Consult to Cardiac Rehabilitation-Phase1 [CONS] Routine Comment: Reason for Consult: post op PCI Call Completed: Yes - Constitutional Vitals: Temp Pulse Resp BP Pulse Ox 98.1 F 74 16 148/89 96 02/05/18 11:30 02/05/18 11:30 02/05/18 11:30 02/05/18 11:30 02/05/18 03:30 Exam: Patient in no acute distress Alert and oriented x3 Heart in regular rate and rhythm without murmur, rub, or leyda Lungs clear to auscultation bilaterally, good air movement Bandage at catheterization site is clean and dry Skin is warm and dry without pallor Mucous membranes moist - Patient Status Disposition: Home, Self-Care Condition: Good Functional capacity at discharge: independent ambulation Overall status at discharge: patient is back to baseline - Discharge Instructions Instructions: Atorvastatin (By mouth), Carvedilol (By mouth), Clopidogrel (By mouth), Chest Pain (DC), Heart Healthy Diet (DC) Follow Up With: Carroll Wilhelm DO [Primary Care Provider] - 02/12/18 12:00 pm Rehan Melo [Partnered Physician] - (Office will call patient at home with follow up appointment) Additional Instructions: RISK FACTORS: STOP SMOKING: If you smoke, STOP. Smoking or tobacco use significantly increases your risk of heart disease because nicotine causes the arteries to narrow or constrict. It also causes fats to stick to the artery. Your chances of having a heart attack are greatly increased if you continue to smoke. For more information, call the education line for smoking cessation 2-553-SEOJHVL EAT A LOW FAT/CHOLESTEROL/SODIUM DIET: This diet may help reduce your chances of having a heart attack. LIFTING: Avoid lifting anything more than 10 pounds for 5-7 days Prior to straining, laughing, sneezing and/or coughing, apply manual pressure directly over insertion site. ACTIVITY: You may walk or climb stairs as tolerated You can resume sexual activity as tolerated In general, you are encouraged to engage in a minimum of 30 minutes or more of moderate intensity physical activity, such as brisk walking, daily or at least 3 -4 times weekly BATHING Do not submerge the site into water (bath tub, hot tub, swimming pool) for 1 week. This can be a source for infection into the blood stream. You may shower after 24 hours SITE CARE: After 24 hours, you may remove the dressing and leave the site open to air. Keep the site clean and dry. Clean gently and pat dry. You can expect bruising and tenderness that gradually resolve within a week or two. Return to work as instructed per your physician Resume driving as instructed per physician Keep all scheduled follow up appointments Resume medications as instructed IMPORTANT: If prescribed a Platelet Aggregation Inhibitor such as, Plavix, Brilinta or Effient: Duration of therapy is minimum one year These medications are often used in combination with Aspirin in prevention of future heart attacks Never discontinue unless consult with your Ceramist STROKE (CVA) Risk factors for a stroke are: Age, cigarette smoking, diabetes, excessive alcohol consumption, family history, high blood pressure, overweight, physical inactivity, prior stroke, heart attack, diagnosis of carotid artery stenosis or other artery disease. Warning signs: Sudden numbness or weakness of the face, arm or leg; especially on one side of the body, sudden confusion, trouble speaking or understanding, sudden trouble seeing in one or both eyes, sudden trouble walking, dizziness, loss of balance or coordination, sudden severe headache with no cause. Call 911 or go to the Emergency Room. CONGESTIVE HEART FAILURE: If you have been diagnosed with Congestive Heart Failure (CHF) and your symptoms return, make an appointment with your physician Weigh yourself daily. Notify your physician if you have a weight gain of two or more pounds in one day or five or more pounds in one week. If you experience any difficulty breathing, please call 911 BLEEDING: Although the risk of bleeding is minimal, it can happen. If you have any bleeding from the site, apply firm pressure above the puncture site for 10-15 minutes. If the bleeding does not stop, continue manual pressure and call 911 Contact your physician if: You develop a fever greater than 101 degrees Fahrenheit Your site becomes reddened or has any drainage You have an increase in pain or burning at the site or if a large knot forms at the site. If you experience chest pain, shortness of breath, dizziness, or extreme tiredness, stop the activity and rest. Please notify your physicians office if you experience any of these symptoms and they are not relieved by rest please call 911! - Diet and Activity Activity: increase activity as tolerated Diet: diabetic diet, low fat, low cholesterol, low salt diet <Cecelia Dey - Last Filed: 02/05/18 22:04> Orders not resulted at time of discharge: Pending orders 02/04/18 18:00 ECG 12 lead ECG [ECG] Stat Date of Encounter: 02/05/18 - Discharge Diagnosis (1) Chest pain Status: Resolved Qualifiers: Chest pain type: chest pain due to myocardial ischemia Ischemic chest pain type: stable angina pectoris Qualified Code(s): I20.8 - Other forms of angina pectoris (2) CVA (cerebral vascular accident) Status: Ruled-out Qualifiers: CVA mechanism: unspecified Qualified Code(s): I63.9 - Cerebral infarction, unspecified (3) Hypertension Status: Chronic Qualifiers: Hypertension type: essential hypertension Qualified Code(s): I10 - Essential (primary) hypertension (4) Dyslipidemia Status: Chronic (5) DVT prophylaxis Status: Acute Hospital course: Mr. Templeton is a 62 year old male - Time Spent with Patient Total time spent providing and/or coordinating discharge services: Date of admission: 02/03/18 11:33 Primary care physician: Carroll Wilhelm DO Consults: 02/04/18 18:00 Consult to Cardiac Rehabilitation-Phase1 [CONS] Routine Comment: Reason for Consult: post op PCI Call Completed: Yes - Constitutional Vitals: Temp Pulse Resp BP Pulse Ox 98.1 F 74 16 148/89 96 02/05/18 11:30 02/05/18 11:30 02/05/18 11:30 02/05/18 11:30 02/05/18 03:30 - Attending Attestation I have examined the patient and reviewed the discharge summary obtained and documented by the resident and I personally participated in the campbell components. and formulation of the plan of care. I have discussed the case and management of the patient's care.
--- NOTE | 2018-02-06 06:56 | Electrocardiograph Report ---
[address] [address] Test Date: 2018-02-05 Pat Name: Obinna Templeton Department: 110 Room: 2N05 Gender: M Executive Services Administrator: JIMMY : [id number] Requested By: Tiffany Ty Order Number: [id number] Reading MD: Galileo Greenwood Measurements Intervals [place] Rate: 67 P: 55 VA: 169 QRS: 9 QRSD: 97 T: 16 QT: 393 QTc: 409 Interpretive Statements SINUS RHYTHM Electronically Signed On 02-06-2018 6:55:23 EDT by Galileo Greenwood
== END 2018-02-05 15:12 | disposition home or self-care (01) ==
LOC: EMEROO 09:11 → 3BNU 09:11 → SUATTDRO 11:33 → 3BNU 11:59 → 2NNU 02-04 17:30
PROVIDERS: ADMIT Student in an Organized Health Care Education/Training Program; ATTEND Internal Medicine